=== PATIENT | female | born 1965 | race African-American/Black ===

== ENCOUNTER 2024-01-11 06:21 | Day surgery (SDC) | payer MEDICARE, SELFPAY ==
[2023-11-22 11:24] VITALS: BMI 24.3
[2023-12-26 12:12] VITALS: BMI 24.3
--- NOTE | 2024-01-10 11:18 | P.PNAN_ITS ---
Anes - Initial Pre Proc Eval Procedure: Operation Date: 01/11/24 08:00 Proposed Procedures p Screening Colonoscopy - Osmin Lopez MD Date/Time: 01/10/24 11:18 Surgeon: Osmin Lopez MD Pre Op Diagnosis: Neoplasm Screening Patient Data Age: 58 Gender: F Height: 1.68 m Weight: 68.5 kg Allergies Allergy/AdvReac Type Severity Reaction Status Date / Time No Known Allergies Allergy Verified 01/11/24 06:54 Home Medications Medication Instructions Recorded Confirmed Type meloxicam 7.5 mg tablet 7.5 mg PO DAILY PRN pain #90 tabs 03/23/23 01/11/24 Rx metformin 500 mg tablet 500 mg PO BID #180 tabs 11/21/23 01/11/24 Rx alprazolam 1 mg tablet 1 mg PO DAILY PRN anxiety #30 tabs 12/22/23 01/11/24 Rx Patient hx anesthesia problems: none Family hx anesthesia problems: none Results Review: All pre-operative results and documents have been reviewed as part of the pre- operative evaluation. REPLACED BY [facility] Past Medical History Medical History Anxiety Arthritis Diabetes Family History Family History Mother Diabetes mellitus Hypertension Sibling Diabetes mellitus Depression Social History Social History Smoking packs per day: 1 Smoking cigarettes per day: 20.0 Years smoked: 40 Smoking pack-years: 40.00 Smoking status: Current every day smoker Tobacco type: cigarettes Alcohol intake: current Substance use: unknown Lack of Transportation: No Lack of Food: Never True Current Housing: I Have Housing Concerned About Future Housing: No Difficulty Paying Gas/Electric Bills: YES Difficulty Paying for Meds: No Currently Unemployed: No Education: High School Diploma/GED Difficulty w/ Childcare or Family Care: No Living arrangements: with family Spiritual care concerns: No Anes - Eval Final PreProcedure Day of Procedure 01/10/24 11:18 Patient weight: normal Heart: regular rate and rhythm Lungs: clear to auscultation and normal air movement Airway: Mallampati scale class II Neurological: alert and oriented Last oral intake: >/= 8 hours ASA classification: III Emergent: no Anesthetic plan: proceed Anesthesia type and monitoring: general GIVS and standard monitoring Results Review: All pre-operative results and documents have been reviewed as part of the pre- operative evaluation. Informed Consent: The patient's anesthetic plan and its attendant risks and benefits were discussed with the patient/family/POA. Questions were solicited and answers provided to the satisfaction of the patient/family/POA.
[2024-01-11 06:55] VITALS: BP 124/83; PULSE 98; RESP 20; TEMP 36.4; O2SAT 97
--- NOTE | 2024-01-11 07:10 | P.HP_ITS ---
History of Present Illness History of Present Illness Consent: Risks, benefits, and alternatives have been discussed and questions answered. Patient agrees to proceed with procedure. Chief complaint: Neoplasm Screening Narrative: Sil Hall is a 58 year old female presents for screening colonoscopy. Her current weight appetite and bowel movements are normal. She denies abdominal pain. Has had no bleeding. Family history is noncontributory. Review of Systems Review of Systems: Review of systems is noncontributory. [facility]LY [facility] Past Medical History Medical History Anxiety Arthritis Diabetes Family History Family History Mother Diabetes mellitus Hypertension Sibling Diabetes mellitus Depression Social History Social History Smoking packs per day: 1 Smoking cigarettes per day: 20.0 Years smoked: 40 Smoking pack-years: 40.00 Smoking status: Current every day smoker Tobacco type: cigarettes Alcohol intake: current Substance use: unknown Lack of Transportation: No Lack of Food: Never True Current Housing: I Have Housing Concerned About Future Housing: No Difficulty Paying Gas/Electric Bills: YES Difficulty Paying for Meds: No Currently Unemployed: No Education: High School Diploma/GED Difficulty w/ Childcare or Family Care: No Living arrangements: with family Spiritual care concerns: No Meds Home Medications and Allergies Home Medications Medication Instructions Recorded Confirmed Type meloxicam 7.5 mg tablet 7.5 mg PO DAILY PRN pain #90 tabs 03/23/23 01/11/24 Rx metformin 500 mg tablet 500 mg PO BID #180 tabs 11/21/23 01/11/24 Rx alprazolam 1 mg tablet 1 mg PO DAILY PRN anxiety #30 tabs 12/22/23 01/11/24 Rx Allergies Allergy/AdvReac Type Severity Reaction Status Date / Time No Known Allergies Allergy Verified 01/11/24 06:54 Vital Signs Vital Signs - 24 hr 01/11/24 06:55 Temperature 97.5 F L Pulse Rate 98 Respiratory Rate 20 Blood Pressure 124/83 Pulse Oximetry 97 Oxygen Delivery Room Air Exam Narrative: Physical exam reveals patient to be alert. Vital signs stable. HEENT exam is unremarkable. Patient is anicteric. Lungs are clear to auscultation and percussion is without murmur or extra sounds. Abdomen bowel sounds are present soft nontender with no organomegaly. Digital external rectal exam is normal. Assessment and Plan Assessment and plan (1) Encounter for screening colonoscopy: Code(s): Z12.11 - Encounter for screening for malignant neoplasm of colon Status: Acute Assessment and Plan: She presents today for screening colonoscopy. She appears to be at average risk for colon polyps.
[2024-01-11] MEDS: LACTATED RINGERS 1,000 ML 150 ML IV CONT (07:22)
[2024-01-11 07:58] LABS: Glucose Point of Care 173 mg/dl (65-105)
[2024-01-11 08:15] VITALS: BP 107/80; PULSE 89; RESP 20; O2SAT 97
[2024-01-11 08:25] VITALS: BP 128/74; PULSE 83; RESP 20; O2SAT 100
[2024-01-11 08:35] VITALS: BP 112/78; PULSE 82; RESP 20; O2SAT 100
--- NOTE | 2024-01-11 10:11 | WPDANESPN ---
Anes - Prog Note Post-Op Date/Time: 01/11/24 10:11 Cardiovascular status: normal Respiratory status: normal Airway patency: baseline Mental status: baseline Post-Op hydration status: normal Vital Signs: Last Vital Signs Temp 36.4 C L 01/11/24 06:55 Pulse 82 01/11/24 08:35 Resp 20 01/11/24 08:35 BP 112/78 01/11/24 08:35 Pulse Ox 100 01/11/24 08:35 O2 Del Method Room Air 01/11/24 08:35 Pain Score (VAS): 0 I/O: Intake & Output 01/10/24 01/11/24 01/11/24 23:59 07:59 15:59 Intake Total 550 Balance 550 01/11/24 07:55 POC Capillary Glucose 173 H Post-procedural complaints: none Patient Feedback: Patient satisfied with anesthetic care. Other Findings: Patient vital signs back to baseline. Patient denies nausea and vomiting. Patient's pain under control. Patient OK for discharge.
== END 2024-01-11 08:38 | disposition home or self-care (01) ==
PROVIDERS: PCP Physician Assistant; Visit Provider Internal Medicine Gastroenterology
PROC: 0DJD8ZZ Inspection of Lower Intestinal Tract, Via Natural or Artificial Opening Endoscopic (ICD-10-PCS; CPT 45378; principal; 2024-01-11 08:00)
DX: Z12.11 Encounter for screening for malignant neoplasm of colon (principal); K64.8 Other hemorrhoids
CPT/HCPCS: 45378

== ENCOUNTER 2024-01-30 15:38 | Outpatient (CLI) | payer MEDICARE, SELFPAY ==
--- NOTE | ~2024-01-30 | XR_ITS ---
EXAM: XR hand LT min 3V DATE: 01/30/2024 15:56 HISTORY: M18.12 - Unilateral primary osteoarthritis of first carpo... . COMPARISON: None available. FINDINGS: Normal mineralization. No fracture or dislocation. No lytic or blastic lesion. Scattered a rthritic changes typical of osteoarthritis involving the interphalangeal joints of the fingers and th umbs, triscaphe joint, radiocarpal joint, with the most progressive change at the trapeziometacarpal joint. Absent ulnar styloid. No periosteal change. Soft tissues within normal limits. IMPRESSION: Polyarticular osteoarthritis of the left hand, moderate at the trapezium metacarpal joint . Absent ulnar styloid, may be secondary to remote fracture or old erosion. Reviewed, dictated and finalized at location K. IMPRESSION: Polyarticular osteoarthritis of the left hand, moderate at the trap ezium metacarpal joint. Absent ulnar styloid, may be secondary to remote fractu re or old erosion.
== END 2024-01-30 15:39 | disposition home or self-care (01) ==
LOC: ANHIMG 15:42
PROVIDERS: PCP Physician Assistant; Visit Provider Plastic Surgery
DX: M18.12 Unilateral primary osteoarthritis of first carpometacarpal joint, left hand (principal); M19.042 Primary osteoarthritis, left hand
CPT/HCPCS: 73130

== ENCOUNTER 2025-02-05 11:01 | Outpatient (CLI) | payer MEDICARE, MEDICAID, SELFPAY ==
--- NOTE | 2025-02-05 11:26 | ECG_ITS ---
Test Date: 2025-02-05 11:32:03 Measurements Intervals [place] Rate: 86 P: 44 NV: 113 QRS: 26 QRSD: 78 T: 24 QT: 361 QTc: 434 Interpretive Statements SINUS RHYTHM WITH SHORT NV INTERVAL MINIMAL VOLTAGE CRITERIA FOR LVH, CONSIDER NORMAL VARIANT [MEETS CRITERIA IN ONE OF: R(aVL), S(V1), R(V5), R(V5/V6)+S(V1)] ABNORMAL ECG Electronically Signed On 02-05-2025 12:55:45 CDT by Bruno Brooks M.D.
[2025-02-05 12:18] LABS: Anion Gap 11 mmol/L (4-12); Blood Urea Nitrogen 17 mg/dL (7-17); Calcium 10.1 mg/dL (8.4-10.2); Carbon Dioxide 25 mmol/L (22-30); Chloride 102 mmol/L (98-107); Estimated Glomerular Filt Rate > 60; Glucose 277 mg/dL (65-110); Potassium 4.3 mmol/L (3.4-5.0); Sodium 138 mmol/L (137-145)
== END 2025-02-05 11:02 | disposition home or self-care (01) ==
LOC: ANHLAB 11:03
PROVIDERS: PCP Internal Medicine; Visit Provider Anesthesiology
DX: E11.9 Type 2 diabetes mellitus without complications (principal); Z01.818 Encounter for other preprocedural examination
CPT/HCPCS: 36415; 80048; 93005

== ENCOUNTER 2025-02-06 05:53 | Day surgery (SDC) | payer MEDICARE, MEDICAID, SELFPAY ==
--- NOTE | 2025-02-05 14:04 | SUR.PREOP ---
Pt's pre-op EKG and BMP results reviewed with Dr. Martel for scheduled surgery 02/06/25 at [facility]. Pt's BG 277. Reviewed pt's health history and medications with Dr. Psiano. He states understanding and okay for pt to come to [facility] as scheduled for surgery.
[2025-02-06] VITALS (9 sets, daily range): BP systolic 108–129; BP diastolic 73–92; PULSE 78–98; RESP 12–18; TEMP 36.1–36.4; O2SAT 92–100; BMI 25.7
--- NOTE | ~2025-02-06 | XR_ITS ---
INTRAOPERATIVE FLUOROSCOPY: CLINICAL HISTORY: 59 years old Female; LEFT BASAL JT ARTHROPLASTY, [facility] THUMB PROCEDURE COMMENTS: Limited intraoperative fluoroscopy of the left hand was performed. CUMULATIVE DOSE: 0.13 mGy FLUOROSCOPY TIME: 21 seconds FINDINGS/IMPRESSION: Please refer to operative note for further details. Reviewed, dictated and finalized at location A.
--- OUTSIDE RECORDS SUMMARY | 2025-02-06 06:32 | XMS_ITS | Encounter Summary ---
Author Organization [facility] Address [address] 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
--- OUTSIDE RECORDS SUMMARY | 2025-02-06 06:32 | XMS_ITS | Clinical Summary ---
Author Organization [facility] Address [address] [place] [address] Care Team Providers Care Windows Systems Admin Name Role Phone Justin Salazar Primary Care Provider [phone] Allergies No known active allergies Medications ALPRAZolam (XANAX) 1 mg tablet Take 1 tablet (1 mg total) by mouth 8 Active aspirin 81 mg enteric coated tablet Take 1 tablet (81 mg total) by mouth daily 1 Active metFORMIN (GLUCOPHAGE) 500 mg tablet Take 1 tablet (500 mg total) by mouth 1 Active QUEtiapine (SEROquel) 25 mg tablet 1 Active meloxicam (MOBIC) 7.5 mg tabletIndicatio ns:Osteoarthrit is Take 1 tablet (7.5 mg total) by mouth daily 30 tablet 3 Active Additional Information Patient not taking.Reported on 05/16/2023 blood-glucose meter misc Diagnosis: Diabetes type 2 Blood testing frequency: once a day E11.9 3 Active blood glucose diagnostic (Miguel Blood Glucose Test Strip) strip Use to check blood glucose levels once daily as directed. E11. 3 Active LANCETS MISC Use to check blood glucose levels once daily as directed. E11. 3 Active alcohol swabs pads, medicated Use to check blood glucose levels once daily as directed. E11. 3 Active escitalopram (LEXAPRO) 10 mg tablet Take 1 tablet (10 mg total) by mouth daily 3 Active estrogens, conjugated, (Premarin) vaginal cream Once daily for 21 days, then off for 7 days. 2 Active triamcinolone (KENALOG) 0.1 % cream Application Site: apply twice a day for 10-14 days to affected areas. (Description and Location) 2 Active cyclobenzaprine (FLEXERIL) 5 mg tablet Take 1-2 tablets (5-10 mg total) by mouth 3 (three) times a day as needed for muscle spasms 30 tablet 1 3 Active HYDROcodone-daniel taminophen (NORCO) 5-325 mg per tablet Take 1 tablet by mouth every 8 (eight) hours as needed for pain 4 Active Active Problems Problem Noted Date Diagnosed Date Arm paresthesia, left 10/04/2022 04/19/2023 Rash 06/28/2022 04/19/2023 Anxiety 02/14/2022 04/19/2023 Noncompliance 02/14/2022 04/19/2023 Impaired mobility and ADLs 07/28/202104/19 Low TSH level 07/28/2021 04/19/2023 Vitamin D deficiency 07/28/2021 04/19/2023 Cocaine use 06/10/2021 04/19/2023 Hyperglycemia 06/10/2021 04/19/2023 Left wrist pain 06/10/2021 04/19/2023 Tachycardia 06/10/2021 04/19/2023 Chronic pain of right knee 06/12/2019 Long-term current use of opiate analgesic 2018 Rotator cuff tendinitis, left 06/11/2019 Biceps tendinitis, left 06/11/2019 Carpal tunnel syndrome of right wrist 08/23/2018 Overview (08/23/2018): Added automatically from request for surgery [id number] Type 2 diabetes mellitus treated without insulin 11/20/2017 Resolved Problems Problem Noted Date Diagnosed Date Resolved Date Dermatitis of foot 10/11/2017 8 Mass of left foot 10/11/2017 07/27/2018 Pain of left foot 10/11/2017 07/27/2018 Dermatomycosis 06/23/2017 07/27/2018 Arthritis 09/19/2016 07/27/2018 Chronic bilateral low back pain with sciatica 09/19/20 16 07/27/2018 Generalized anxiety disorder 09/19/2016 07/27/2018 Lipoma of right shoulder 09/19/201605/2018 Non morbid obesity due to excess calories 09/19/2016 07/27/2018 Tobacco abuse 09/19/2016 07/27/2018 Hyperlipidemia 11/20/2015 07/27/2018 Immunizations Immunization Administration Dates Next Due Tdap 03/28/2018 Surgical History Surgery Date Site/Laterality Comments SECTION, CLASSIC Medical History Medical History Date Comments Hyperlipidemia Chronic pain of right knee DM2 (diabetes mellitus, type 2) (HCC) 11/20/2017 Depression ADHD (attention deficit hyperactivity disorder) Anxiety Arthritis Family History Medical History Relation Name Comments Diabetes Brother Arthritis Mother Cancer Mother Hypertension Mother Relation Name Status Comments Brother Mother Social History Tobacco Use Types Packs/Day Years Used Date Smoking Tobacco: Every Day Cigarettes Smokeless Tobacco: Never Alcohol Use Standard Drinks/Week Comments Yes 3 (1 standard drink = 0.6 oz pur e alcohol) Personal Safety Answer Date Recorded Have you ever been in or are you currently in a harmful physical or emotional relationship or is someone making you feel afraid or unsafe? 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 Gender Identity Not on file Sexual Orientation Not on file Obstetrics History Para Term AB IAB SAB Ectopic Multiple Livin g Live Births 4 4 Date Outcome GA Total Labor Labor/2nd/3rd Weight Sex Type Anes PTL Ave A1 A5 Name Clin Para Para Para Para Last Filed Vital Signs Vital Sign Reading Time Taken Comments Blood Pressure 127/85 09/18/2024 9:20 AM CDT Pulse 86 09/18/2024 9:20 AM CDT Temperature 36.2 C (97.2 F) 03/19/2023 10:33 AM CDT Respiratory Rate 16 03/19/2023 10:00 AM CDT Oxygen Saturation 96% 03/19/2023 10:25 AM CDT Inhaled Oxygen Concentration - - Weight 71.7 kg (158 lb) 09/18/2024 9:20 AM CDT Height 162.6 cm (5' 4 ) 09/18/2024 9:20 AM CDT Body Mass Index 27.12 09/18/2024 9:20 AM CDT Plan of Treatment Health Maintenance Due Date Last Done Comments Cervical Cancer Screening 1963 Colon Cancer Screening-Colonoscopy 1963 Depression Screening 1963 Hemoglobin A1C 1963 Hepatitis C Screening 1963 Dilated Eye Exam 1963 Foot Exam 1963 Hepatitis B Screening 1981 Regular Well Visit/Exam 18-64 1981 Pneumococcal vaccine <65 (1 of 2 - PCV) 1982 Zoster Vaccine (1 of 2) 2013 Lipid Panel 07/27/2022 07/27/2021, 07/08/2019 eGFR 07/30/2022 07/30/2021 Breast Cancer Screening-Mammogram 03/16/2023 03/16/2022, 03/16/2022, 08/05/2019, Additional history exists Influenza Vaccine (#1) 2024 Albumin Creatinine Ratio, Urine 11/07/2025 DTaP/Tdap/Td Vaccine (2 - Td or Tdap) 03/28/2028 03/28/2018 Procedures Procedure Name Priority Date/Time Associated Diagnosis Comments ALBUMIN CREATININE RATIO, URINE Routine 11/07/2024 2:15 PM FINISHING AREA SUPERVISOR EGFR STAT 07/30/2021 10:40 AM CDT from Last 3 Months or Most Recently Relevant to Health Maintenance Results * Albumin Creatinine Ratio, Urine (11/07/2024 2:15 PM FINISHING AREA SUPERVISOR) Albumin Ur <12.0 mg/L Comment: Interpretive Data No reference range established. Current interpretive data was last revised 2019. Testing performed by: [facility], [address] [place] [address], [place]., [address] Creatinine Ur 35.7 mg/dL [facility] ([place]) Comment: Interpretive Data No reference range established. Current interpretive data was last revised 2019. Testing performed by: [address] [address] Albumin Creatinine Ratio, Ur See Comment 1 - 29 [facility] ([place]) Comment: Unable to calculate Testing performed by: [facility] [id number], [place]., [address] Urine 11/07/2024 2:15 PM FINISHING AREA SUPERVISOR 11/07/2024 5:42 PM FINISHING AREA SUPERVISOR us Edil Lorenzo MD LAB URINE ORDERABLES Fi nal Result [facility] ([place]) 1 [facility] [place] [address] * eGFR (07/30/2021 10:40 AM CDT) eGFR 110 mL/min/1.7 3 m2 [facility] ([place]) Comment: Interpretive Data Reference Interval Normal >/= 90 mL/min/1.73m2 Mildly decreased* 60 - 89 mL/min/1.73m2 Mildly to moderately decreased 45 - 59 mL/min/1.73m2 Moderately to severely decreased 30 - 44 mL/min/1.73m2 Severely decreased 15 - 29 mL/min/1.73m2 Kidney Failure < 15 mL/min/1.73m2 *Relative to young adult level Estimated glomerular filtration rate is determined by the CKD-EPI equation recommended by the National Kidney Foundation (KDIGO 2012 Clinical Practice Guideline for the Evaluation and Management of Chronic Kidney Disease. Kidney Intnl Suppl Nov 2012;3:1). The CKD-EPI equation should not be used for patients with unstable renal function and has not been validated in children and those over 70. Current interpretive data was last reviewed 2020 Blood 07/30/2021 10:4 0 AM CDT 07/30/2021 10:48 AM CDT us Conrad Lewis MD LAB BLOOD ORDERABLES F inal Result [facility] ([place]) 1 [facility] [place] [address] from Last 3 Months or Most Recently Relevant to Health Maintenance Insurance [employer] [facility] MEDICARE HMO [employer] [facility] MEDICARE HMO IDPA [facility] MEDICARE HMO MEDICARE SOLUTIONS Care Teams Windows Systems Admin Relationship Specialty Start Date End Date Justin Salazar DO [address] [facility] [address] [place] [address] PCP - General Internal Medicine 11/14/24
--- OUTSIDE RECORDS SUMMARY | 2025-02-06 06:32 | XMS_ITS | Referral Summary ---
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 Current interpretive data was last revised 2019. Testing performed by: [address] [address] Creatinine Ur 35.7 mg/dL [facility] ([place]) Comment: Interpretive Data No reference range established. Current interpretive data was last revised 2019. Testing performed by: [address] [address] Albumin Creatinine Ratio, Ur See Comment 1 - 29 [facility] ([place]) Comment: Unable to calculate Testing performed by: [address] [address] Urine 11/07/2024 2:15 PM OIL PROCESSING TECHNICIAN 11/07/2024 5:42 PM OIL PROCESSING TECHNICIAN us Edil Lorenzo MD LAB URINE ORDERABLES nal Result [facility] ([place]) 1 [facility] [place] [address] * eGFR (07/30/2021 10:40 AM CDT) eGFR 110 mL/min/1.7 3 m2 [facility] ([place]) Comment: Interpretive Data Reference Interval Normal >/= [...] 0 AM CDT 07/30/2021 10:48 AM CDT Conrad Lewis MD LAB BLOOD ORDERABLES F inal Result [facility] ([place]) 1 [facility] [employer] [place] [address] from Last 3 Months or Most Recently Relevant to Health Maintenance Insurance [employer] [facility] MEDICARE HMO [employer] [facility] MEDICARE HMO IDPA [employer] MEDICARE HMO MEDICARE SOLUTIONS Care Teams Engagement Engineer Relationship Specialty Start Date End Date Justin Salazar DO [address] [facility] [address] [place], [place] [id number] PCP - General Internal Medicine 11/14/24
--- OUTSIDE RECORDS SUMMARY | 2025-02-06 06:32 | XMS_ITS | Clinical Summary ---
Author Organization [facility] Address [address] 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
--- OUTSIDE RECORDS SUMMARY | 2025-02-06 06:32 | XMS_ITS | Patient Health Record ---
Author Organization [facility] [employer] Address [address] [facility] [address] [place] [address] Care Team Providers Care Controller Operations And Hr Manager Name Role Phone Son Santana Unavailable [phone] Reason For Referral No Information Medications Medication SIG (Take, Route, Frequency, Duration) Notes Start Date End Date Status HYDROcodone-Acetaminophen 10-325 MG TAKE 1 TABLET BY MOUTH THREE TIMES DAILY NEEDED Oral for 30 Days Active metFORMIN HCl 500 MG TAKE 1 TABLET BY MOUTH TWICE DAILY Oral for 90 Days Active ALPRAZolam 1 MG 1 tablet Orally once a day Active Cyclobenzaprine HCl 5 MG TAKE 1 TABLET B Y MOUTH AT BEDTIME FOR 3 DAYS Oral for 3 Days Not-Taking ALPRAZolam 1 MG TAKE 1 TABLET BY MOUTH DAILY NEEDED FOR ANXIETY Oral for 30 Days Not-Taking Cyclobenzaprine HCl 5 MG TAKE 1 TABLET B Y MOUTH AT BEDTIME FOR 3 DAYS Oral for 3 Days Active Social History Tobacco Use: Social History Observation Description Date Details (start date - stop date) Current Smoker NA - NA Sex Assigned At : Social History Observation Description Sex Assigned At Female Tobacco Control (Standard) Question Answer Notes Tobacco use: Current every day smoker AUDIT-C (Standard) Question Answer Notes Did you have a drink contain ing alcohol in the past year? Yes How often did you have six o r more drinks on one occasion in the past year? 2 to 4 times a month (2 points) How many drinks did you have on a typical day when you were drinking in the past year? 1 or 2 drinks (0 point) How often did you have a dri nk containing alcohol in the past year? Never (0 point) Points 2 Interpretation Negative Problems Problem Type SNOMED Code ICD Code Onset Dates Problem Status W/U Status Risk Notes Problem 32329160 [place] (generalized anxiety disorder) (F41.1) Active confirmed Problem 36824892 Cannabis abuse (F12.10) Active confirmed Problem Vitamin D deficiency (25942661) Vitamin D deficiency (E55.9) 3 Active confirmed Problem Long-term current use of drug therapy (304233884) Other mcc (current) drug therapy (V58.69) Active confirmed Problem Type II diabetes mellitus without complication (130628950) Type 2 diabetes mellitus treated without insulin ([facility]) (E11.9) 3 Active confirmed Problem Nondependent cocaine abuse (063609503) Cocaine use (F14.90) 3 Active confirmed Problem Pain in wrist (52161623) Left wrist pain (M25.532) 3 Active confirmed Problem Chronic pain of right knee (M25.561) 9 Active confirmed Problem Blood chemistry abnormal (259149568) Low TSH level (R79.89) 3 Active confirmed Vital Signs Heart Rate 92 /min 05/15/2024 Blood pressure diastolic 92 mm Hg 05/15/2024 Weight-kg 72.85 kg 05/15/2024 Blood pressure systolic 116 mm Hg 05/15/2024 Weight 160.6 lbs 05/15/2024 Encounters Encounter Location Date Provider Diagnosis [facility] [email or web address] [facility] [address] [address] 05/15/2024 Son Santana Other mcc (current) drug therapy V58.69 ; [place]ENS (generalized anxiety disorder) F41.1 and Cannabis abuse F12.10 [facility] [employer] [place] [id number] [facility] [address] [facility] [address] [place] [address] 09/11/2024 Son Santana Assessments Encounter Date Diagnosis (ICD Code) Assessment Notes Treatment Notes Treatment Clinical Notes Section Notes 05/15/2024 [place] (generalized anxiety disorder) (ICD-10 - F41.1) Anxiety Disorder - Assessment: Patient is currently prescribed Alprazolam 30mg by primary care physician for anxiety disorder. - Plan: - Continue current Alprazolam 1 mg as prescribed until further evaluation. - Obtain a letter from the previous treating physician at [facility] regarding the long-term use of Alprazolam 3 mg daily - Patient advised to remain marijuana-free for at least three months. - Consider alternative non-addictive treatment options, such as Buspirone, for anxiety management. She was adviced not to use cannabis, she does not know the name of physician giving her xanax 3 mg a day for years, [place] [facility] [place] Depression - Assessment: Patient experiences mood fluctuations, sleep disturbances, and feelings of guilt or hopelessness. - Plan: - Monitor mood symptoms. - Encourage the patient to report any thoughts of self-harm or suicide. - Consider referral to outpatient psychiatric treatment if symptoms worsen. Tobacco Use - Assessment: Patient has a history of tobacco use. - Plan: - Encourage smoking cessation and provide resources for quitting. - Monitor for potential health complications related to long-term smoking. Alcohol and Marijuana Use - Assessment: Patient has a history of alcohol and marijuana use. - Plan: - Advise the patient to limit alcohol consumption and maintain abstinence from marijuana. - Monitor for potential interactions with current medications. Type 2 Diabetes - Assessment: Patient has Type 2 diabetes under the care of Dr. Clark. - Plan: - Continue management under the care of Dr. Clark. - Encourage regular follow-up appointments every three to six months. Left Wrist Pain and Previous Left Knee Issues - Assessment: Patient experiences left wrist pain and has a history of left knee issues. Currently taking Naproxen and Cyclobenzaprine as prescribed. - Plan: - Continue current Naproxen and Cyclobenzaprine as prescribed. - Encourage the patient to report any worsening of pain or new joint issues. - Consider referral to physical therapy if needed. 05/15/2024 Other mcc (current) drug therapy (ICD9-CM - V58.69) Anxiety Disorder - Assessment: Patient is currently prescribed Alprazolam 30mg by primary care physician for anxiety disorder. - Plan: - Continue current Alprazolam 1 mg as prescribed until further evaluation. - Obtain a letter from the previous treating physician at [facility] regarding the long-term use of Alprazolam 3 mg daily - Patient advised to remain marijuana-free for at least three months. - Consider alternative non-addictive treatment options, such as Buspirone, for anxiety management. She was adviced not to use cannabis, she does not know the name of physician giving her xanax 3 mg a day for years, she [place] [facility] [place] Depression - Assessment: Patient experiences mood fluctuations, sleep disturbances, and feelings of guilt or hopelessness. - Plan: - Monitor mood symptoms. - Encourage the patient to report any thoughts of self-harm or suicide. - Consider referral to outpatient psychiatric treatment if symptoms worsen. Tobacco Use - Assessment: Patient has a history of tobacco use. - Plan: - Encourage smoking cessation and provide resources for quitting. - Monitor for potential health complications related to long-term smoking. Alcohol and Marijuana Use - Assessment: Patient has a history of alcohol and marijuana use. - Plan: - Advise the patient to limit alcohol consumption and maintain abstinence from marijuana. - Monitor for potential interactions with current medications. Type 2 Diabetes - Assessment: Patient has Type 2 diabetes under the care of Dr. Clark. - Plan: - Continue management under the care of Dr. Clark. - Encourage regular follow-up appointments every three to six months. Left Wrist Pain and Previous Left Knee Issues - Assessment: Patient experiences left wrist pain and has a history of left knee issues. Currently taking Naproxen and Cyclobenzaprine as prescribed. - Plan: - Continue current Naproxen and Cyclobenzaprine as prescribed. - Encourage the patient to report any worsening of pain or new joint issues. - Consider referral to physical therapy if needed. 05/15/2024 Cannabis abuse (ICD-10 - F12.10) Anxiety Disorder - Assessment: Patient is currently prescribed Alprazolam 30mg by primary care physician for anxiety disorder. - Plan: - Continue current Alprazolam 1 mg as prescribed until further evaluation. - Obtain a letter from the previous treating physician at [facility] regarding the long-term use of Alprazolam 3 mg daily - Patient advised to remain marijuana-free for at least three months. - Consider alternative non-addictive treatment options, such as Buspirone, for anxiety management. She was adviced not to use cannabis, she does not know the name of physician giving her xanax 3 mg a day for years, she [place] [facility] [place] - Assessment: Patient experiences mood fluctuations, sleep disturbances, and feelings of guilt or hopelessness. - Plan: - Monitor mood symptoms. - Encourage the patient to report any thoughts of self-harm or suicide. - Consider referral to outpatient psychiatric treatment if symptoms worsen. Tobacco Use - Assessment: Patient has a history of tobacco use. - Plan: - Encourage smoking cessation and provide resources for quitting. - Monitor for potential health complications related to long-term smoking. Alcohol and Marijuana Use - Assessment: Patient has a history of alcohol and marijuana use. - Plan: - Advise the patient to limit alcohol consumption and maintain abstinence from marijuana. - Monitor for potential interactions with current medications. Type 2 Diabetes - Assessment: Patient has Type 2 diabetes under the care of Dr. Clark. - Plan: - Continue management under the care of Dr. Clark. - Encourage regular follow-up appointments every three to six months. Left Wrist Pain and Previous Left Knee Issues - Assessment: Patient experiences left wrist pain and has a history of left knee issues. Currently taking Naproxen and Cyclobenzaprine as prescribed. - Plan: - Continue current Naproxen and Cyclobenzaprine as prescribed. - Encourage the patient to report any worsening of pain or new joint issues. - Consider referral to physical therapy if needed. 05/15/2024 Other Learning About Depression Screening material was printed Learning About Depression Screening material was printed Anxiety Disorder - Assessment: Patient is currently prescribed Alprazolam 30mg by primary care physician for anxiety disorder. - Plan: - Continue current Alprazolam 1 mg as prescribed until further evaluation. - Obtain a letter from the previous treating physician at [facility] regarding the long-term use of Alprazolam 3 mg daily - Patient advised to remain marijuana-free for at least three months. - Consider alternative non-addictive treatment options, such as Buspirone, for anxiety management. She was adviced not to use cannabis, she does not know the name of physician giving her xanax 3 mg a day for years, she [place] [facility] [place] - Assessment: Patient experiences mood fluctuations, sleep disturbances, and feelings of guilt or hopelessness. - Plan: - Monitor mood symptoms. - Encourage the patient to report any thoughts of self-harm or suicide. - Consider referral to outpatient psychiatric treatment if symptoms worsen. Tobacco Use - Assessment: Patient has a history of tobacco use. - Plan: - Encourage smoking cessation and provide resources for quitting. - Monitor for potential health complications related to long-term smoking. Alcohol and Marijuana Use - Assessment: Patient has a history of alcohol and marijuana use. - Plan: - Advise the patient to limit alcohol consumption and maintain abstinence from marijuana. - Monitor for potential interactions with current medications. Type 2 Diabetes - Assessment: Patient has Type 2 diabetes under the care of Dr. Clark. - Plan: - Continue management under the care of Dr. Clark. - Encourage regular follow-up appointments every three to six months. Left Wrist Pain and Previous Left Knee Issues - Assessment: Patient experiences left wrist pain and has a history of left knee issues. Currently taking Naproxen and Cyclobenzaprine as prescribed. - Plan: - Continue current Naproxen and Cyclobenzaprine as prescribed. - Encourage the patient to report any worsening of pain or new joint issues. - Consider referral to physical therapy if needed. Plan Of Treatment Pending Test Test Name Order Date UDT 05/15/2024 Insurance Providers Payer Name Payer Address Payer Phone Subscriber Number Group Number Insured Name Patient Relationship to Insured Coverage Start Date Coverage End Date [facility] [address] [place] [phone] [id number] [place] Self - patient is the insured
--- OUTSIDE RECORDS SUMMARY | 2025-02-06 06:32 | XMS_ITS | Encounter Summary ---
Author Organization [facility] Address [address] [facility] [place] [address] Phone Care Team Providers Care Bleach Boiler Puller Name Role Phone Nathanael Cannon MD Unavailable [phone] Shubham Chamberlain MD Primary Care Provider [phone] Reason for Referral * PT/OT/ST (Routine) - Closed Specialty Diagnoses / Procedures Referred By Contdioni t Referred To Contact Occupational Therapy Diagnoses Unilateral primary osteoarthritis of first carpometacarpal joint, left hand Justin Salazar DO [address] [facility] [place] [address] Phone: tel: fax: [facility] at [address] [address] Phone: tel: fax: Referral ID Status Reason Start Date Expiration Date Visits Re quested Visits Authorized [id number] Closed 07/01/2024 50 60 Scheduling Instructions Encounter Details Date Type Department Care Team (Late st Contact Info) Description 07/01/2024 Transcribe Orders [facility] [address] [place] [address] Allen Salazare L, DO [address] [place] [address] Unilateral primary osteoarthritis of first carpometacarpal joint, left hand (Primary Dx) Social History Tobacco Use Types Packs/Day Years Used Date Smoking Tobacco: Every Day Cigarettes 0.5 45.7 Started: 06/11/1979 Smokeless Tobacco: Never Alcohol Use Standard Drinks/Week Comments Yes 2 (1 standard drink = 0.6 oz pur e alcohol) occassional PHQ-2 Answer Date Recorded Total Score - Questions 1-9 0 08/0 07/2022 Sexually Active Control Partners Comments Yes Male Comments No Sex and Gender Information Value Date Recorded Sex Assigned at Female 07/04/2023 10:53 AM CDT Legal Sex Female 11:51 PM CDT Gender Identity Female 07/04/2023 10:53 AM CDT Sexual Orientation Not on file documented as of this encounter Plan of Treatment Scheduled Referrals Name Type Priority Associated Diagnoses Orde r Schedule OCCUPATIONAL THERAPY REFERRAL Outpatient Referral Routine Unilateral primary osteoarthritis of first carpometacarpal joint, left hand Expected: 07/01/2024, Expires: 07/01/2025 documented as of this encounter Visit Diagnoses Diagnosis Unilateral primary osteoarthritis of first carpometacarpal joint, left hand- Primary documented in this encounter Additional Health Concerns Assessment Noted Time PHQ-9 Depression Total Score: 0 06/28/20 22 3:00 PM CDT documented as of this encounter Care Teams Bleach Boiler Puller Relationship Specialty Start Date End Date Shubham Chamberlain MD #[address] [address] PCP - General Family Medicine 06/10/21 Nathanael Cannon MD Consulting Physician Orthopaedic Surgery 06/18/18 documented as of this encounter
--- OUTSIDE RECORDS SUMMARY | 2025-02-06 06:32 | XMS_ITS | Clinical Summary ---
Author Organization [facility] Address [address], [facility] [address] [place] [address] Phone Care Team Providers Care Head Loft Worker Name Role Phone Nathanael Cannon MD Unavailable [phone] Shubham Chamberlain MD Primary Care Provider Allergies No known active allergies Medications triamcinolone (KENALOG) 0.1 % CreamIndication s:Rash Application Site: apply twice a day for 10-14 days to affected areas. (Description and Location) 15 g 2 Active conjugated estrogens (Premarin) 0.625 MG/GM CreamIndication s:Dyspareunia, female Once daily for 21 days, then off for 7 days. 30 g 3 2 Active naproxen (NAPROSYN) 500 MG Tablet Take 1 Tablet by mouth 2 times daily (with meals). 60 Tablet 2 2 Active gabapentin (NEURONTIN) 100 MG Capsule Take 1 Capsule by mouth 3 times daily. 90 Capsule 1 2 Active Blood Glucose Monitoring Suppl DeviceIndicatio ns:Type 2 diabetes mellitus without complication, without long-term current use of insulin (HCC) Diagnosis: Diabetes type 2 Blood testing frequency: once a day E11.9 1 Each 3 Active Glucose Blood StripIndication s:Type 2 diabetes mellitus without complication, without long-term current use of insulin (HCC) Use to check blood glucose levels once daily as directed. E11.9 100 Strip 11 3 Active Lancets MiscIndications :Type 2 diabetes mellitus without complication, without long-term current use of insulin (HCC) Use to check blood glucose levels once daily as directed. E11.9 100 Lancet 11 3 Active Alcohol Swabs (Alcohol Prep) 70 % PadsIndications :Type 2 diabetes mellitus without complication, without long-term current use of insulin (HCC) Use to check blood glucose levels once daily as directed. E11.9 100 Each 11 3 Active escitalopram (LEXAPRO) 10 MG TabletIndicatio ns:Anxiety Take 1 Tablet by mouth daily. 90 Tablet 1 3 Active hydrOXYzine (ATARAX) 25 MG TabletIndicatio ns:Anxiety Take 1 Tablet by mouth every 8 hours as needed for Anxiety. 90 Tablet 2 3 Active metFORMIN (GLUCOPHAGE) 500 MG Tablet Take 1 Tablet by mouth 2 times daily (with meals). 180 Tablet 3 3 Active QUEtiapine (SEROquel) 25 MG Tablet Take 1 Tablet by mouth nightly as needed for Other. 90 Tablet 3 3 Active aspirin EC 81 MG Tablet Delayed Response Take 1 Tablet by mouth daily. 100 Tablet 3 3 Active Active Problems Problem Noted Date Diagnosed Date Arm paresthesia, left 10/04/2022 Rash 06/28/2022 Personal history of tobacco use, presenting hazards to health 06/28/2022 Noncompliance 02/14/2022 Anxiety 02/14/2022 Type 2 diabetes mellitus treated without insulin 07/28/2021 Vitamin D deficiency 07/28/2021 Impaired mobility and ADLs 07/28/2021 Low TSH level 07/28/2021 Cocaine use 06/10/2021 Tachycardia 06/10/2021 Hyperglycemia 06/10/2021 Left wrist pain 06/10/2021 Chronic pain of right knee 06/10/2021 Long-term current use of opiate analgesic 2018 DM2 (diabetes mellitus, type 2) 11/20/2017 Dermatitis of foot 10/11/2017 Dermatomycosis 06/23/2017 Chronic bilateral low back pain with sciatica Generalized anxiety disorder 09/19/2016 Arthritis 09/19/2016 Non morbid obesity due to excess calories 2015 Tobacco abuse 09/19/2016 Hyperlipidemia 11/20/2015 Resolved Problems Problem Noted Date Diagnosed Date Resolved Date S/P excision of lipoma 09/03/201912/02 Mass of left foot 10/11/2017 10/15/2018 Pain of left foot 10/11/2017 10/15/2018 Chronic pain of right knee 09/19/2016 0 01/26/2018 Chronic right shoulder pain 09/19/2016 01/26/2018 Lipoma of right shoulder 09/19/2016 Immunizations Immunization Administration Dates Next Due TDAP Vaccine 03/28/2018 Family History Medical History Relation Name Comments Diabetes Brother 1 x2 Diabetes Brother 2 No Known Problems Daughter Other-comment Father killed Breast Cancer Mother Cancer Mother BREAST Hypertension Mother Kidney Disease Mother No Known Problems Son 1 No Known Problems Son 2 No Known Problems Son 3 Relation Name Status Comments Brother 1 Alive Brother 2 Alive Brother 3 Alive Brother 4 Alive Brother 5 Alive Daughter Alive Father Mother Sister 1 Alive Sister 2 Alive Sister 3 Alive Sister 4 Alive Son 1 Alive Son 2 Alive Son 3 Alive Social History Tobacco Use Types Packs/Day Years Used Date Smoking Tobacco: Every Day Cigarettes 0.5 45.7 Started: 06/11/1979 Smokeless Tobacco: Never Tobacco Cessation:Ready to Q uit: No; Counseling Given: Yes Alcohol Use Standard Drinks/Week Comments Yes 2 [...] AM CDT Sexual Orientation Not on file Last Filed Vital Signs Vital Sign Reading Time Taken Comments Blood Pressure 124/68 02/06/2023 10:43 AM CDT Pulse 94 02/06/2023 10:43 AM CDT Temperature 36.1 C (96.9 F) 02/06/2023 10:43 AM CDT Respiratory Rate 16 02/06/2023 10:43 AM CDT Oxygen Saturation 97% 02/06/2023 10:43 AM CDT Inhaled Oxygen Concentration - - Weight 68.6 kg (151 lb 3.2 oz) 02/06/2023 10:43 AM CDT Height 167.6 cm (5' 6 ) 02/06/2023 10:43 AM CDT Body Mass Index 24.4 02/06/2023 10:43 AM CDT Plan of Treatment Health Maintenance Due Date Last Done Comments Diabetes: Foot Exam 1963 Pneumococcal Immunization (50+ years) (1 of 2 - PCV) 1982 Colonoscopy 2008 Colorectal Cancer Screening 2008 Cologuard 2013 Immunochemical Fecal Occult Blood 2013 Zoster Immunization (1 of 2) 2013 Diabetes: Nephropathy Screening 07/27/2022 07/27/2021, 07/08/2019, 02/21/2018, Additional history exists Diabetes: Hemoglobin A1c 08/17/2022 022, 07/27/2021, 07/08/2019, Additional history exists Mammogram 03/16/2023 03/16/2022, 07/21, 10/11/2016 Diabetes: Eye Exam 05/15/2024 05/15/2023 Influenza Immunization (#1) 2024 SARS-COV-2 Immunization ( season) 2024 Pap Smear 07/28/2025 07/28/2022, 12/14/2016 Cervical Cancer Screening (CCS) 07/28/2027 HPV/Cotest 07/28/2027 07/28/2022 Td Immunization Every 10 Years (Adults With 1 Tdap) 03/28/2028 03/28/2018 Respiratory Syncytial Virus (RSV) Immunization (Adult) (1 - 1-dose 75+ series) 2038 Hepatitis C Virus (HCV) Screening Completed 07/27/2021 Hepatitis B Immunization Aged Out No longer eligible based on patient's age to complete this topic Meningococcal Immunization (ACWY) Aged Out No longer eligible based on patient's age to complete this topic Rotavirus Immunization Aged Out No lo nger eligible based on patient's age to complete this topic Procedures Procedure Name Priority Date/Time Associated Diagnosis Comments HM DILATED EYE EXAM 05/15/2023 1 2:00 AM CDT PATHOLOGY CYTOLOGY PRESS READER Routine 07/28/2022 2:19 PM CDT Encounter for gynecological examination without abnormal finding Screening for malignant neoplasm of cervix HUMAN PAPILLOMA VIRUS (HPV) Routine 07/28/2022 11:01 AM CDT Encounter for screening for human papillomavirus (HPV) ALBERTO SCREENING BILATERAL DIGITAL W CAD W RHEA Routine 03/16/2022 12:08 PM CDT Screening mammogram for breast cancer HEMOGLOBIN A1C W/ ESTIMATED GLUCOSE Routine 02/14/2022 6:23 AM CDT Type 2 diabetes mellitus treated without insulin (HCC) CMP (COMPREHENSIVE METABOLIC PANEL) Routine 07/27/2021 11:42 AM CDT Tachycardia HEPATITIS C ANTIBODY Routine 07/27/2021 11:42 AM CDT Encounter for hepatitis C screening test for low risk patient from Last 3 Months or Most Recently Relevant to Health Maintenance Results * HM DILATED EYE EXAM (05/15/2023 12:00 AM CDT) 05/15/2023 us Provider Scan PROCEDURE/MINOR SURGICAL ORDERAB LES Final Result SCAN * PATHOLOGY CYTOLOGY PRESS READER (07/28/2022 2:19 PM CDT) SPECIMEN ADEQUACY Satisfactory for evaluation. Endocervical/transf ormation zone component is absent. 08/08/2022 9:36 AM CDT [facility] DESCRIPTIVE DIAGNOSIS NEGATIVE FOR INTRAEPITHELIAL LESIONS OR MALIGNANCY. 08/08/2022 9:36 AM CDT [facility] Reflex if ASCUS? Yes 08/08/2022 9:36 AM CDT [facility] Automated Examination This sample was not evaluated by the automated imaging and review system due to technical and/or biologic factor(s). The case was screened, reviewed, and finalized by a energy conservation technician and/or pathologist. 08/08/2022 9:36 AM CDT [facility] Disclaimer The PAP smear is a screening test designed to detect cancerous or precancerous cells of the uterine cervix. It is one of the best means available for detection of cervical cancer but still carries an inherent false-negative rate. The consequences of a false-negative PAP result can be minimized by adhering to current screening guidelines. The following are general guidelines recommended by the ACS, ASCP, ASCCP, and ACOG: PAP testing is recommended every three years for women 21-29, Co-Testing , a PAP test in conjunction with an HPV (Human Papillomavirus) test for women ages 30-65, and no PAP or HPV testing for women under the age of 21 or older than 65 unless clinically indicated. 08/08/2022 9:36 AM CDT [facility] Other CERVIX UTERI STRUCTURE / Unknown Non-Phlebotomy Collection / Unknown 07/28/2022 2:19 PM CDT 07/28/2022 2:20 PM CDT us David Parry MD PATHOLOGY/CYTOLOGY ORDERABLES nal Result [facility] [address] [place] [address], * (ABNORMAL) HUMAN PAPILLOMA VIRUS (HPV) (07/28/2022 11:01 AM CDT) HPV OTHER HIGH RISK TYPES, PCR POSITIVE(A) NEGATIVE 07/29/2022 2:51 PM CDT [facility] Comment: Positive for one or more of the following Other High HPV types: 31, 33, 35, 39, 45, 51, 52, 56, 58, 59, 66, and 68. False-positive results have been reported with molecular assays. If these positive results are discordant with clinical/cytohistologic findings, repeat testing may be considered after an appropriate interval. HPV TYPE 16 POSITIVE(A) NEGATIVE 07/29/2022 2:51 PM CDT [facility] Comment:False-positive resul ts have been reported with molecular assays. If these positive results are discordant with clinical/cytohistologic findings, repeat testing may be considered after an appropriate interval. HPV TYPE 18 NEGATIVE NEGATIVE 07/29/2022 2:51 PM CDT [facility] Comment: A negative high-risk HPV result does not exclude the possibility of future cytologic HSIL or underlying CIN2-3 or cancer. The presence of PCR inhibitors may cause false negative or invalid results. If concentrations of whole blood in the sample exceed 1.5% (dark red or brown coloration) in PreservCyt solution, there is a likelihood of obtaining a false-negative result. HPV ORDER BE USED FOR SCREENING OR DIAGNOSTIC SCREENING 07/29/2022 2:51 PM CDT [facility] Other Non-Phlebotomy Collection / Unknown 07/28/2022 11:01 AM CDT 07/28/2022 11:01 AM CDT Narrative [facility] - 07/29/2022 2:51 PM CDT Performed by Real-Time Polymerase Chain Reaction (PCR) on the Ananya Markus 4800. This assay has been validated for use with post-aliquot samples from the Pixium Vision T5000 processor. us David Parry MD LAB SEND OUTS Final Result [facility] [address] [place] [address], [facility] [address] [place] [address] * ALBERTO SCREENING BILATERAL DIGITAL W CAD W RHEA (03/16/2022 12:08 PM CDT) Anatomical Region Laterality Modality breast Bilateral Mammography 03/16/2022 11:3 5 AM CDT Narrative 03/21/2022 8:20 AM CDT - ALBERTO SCREENING BILATERAL DIGITAL W CAD W RHEA BILATERAL DIGITAL SCREENING MAMMOGRAM 3D/2D WITH CAD WITH MEDIOLATERAL OBLIQUE CRANIOCAUDAL: 03/16/2022 The study was acquired using digital technology and interpreted from soft copy. Current study was also evaluated with ICAD version 7.2. 2D digital mammographic views, as well as 3D digital tomosynthesis were performed in the CC and MLO projections. CLINICAL: Routine screening. Patient has no complaints. No personal history of cancer. No family history of breast cancer. COMPARISONS: Comparison is made to exams dated: 08/05/2019, 10/11/2016, and 07/31/2007 [facility]. BREAST TISSUE:There are scattered fibroglandular densities in both breasts. FINDINGS: No significant masses, calcifications, or other findings are seen in either breast. There has been no significant interval change. IMPRESSION: BI-RAD 1 NEGATIVE There is no mammographic evidence of malignancy. A 1 year screening mammogram is recommended. A letter will be sent to the patient with these results. The patient will be entered into a reminder system with a target due date of 1 year for her next screening exam. Electronically signed by: Baldo ivan/pearl:03/19/2022 17:05:44 Scenario Writer(s): Ayan Vences(Aston)(M), [facility] letter sent: Normal Exam Reading location: [facility] BI-RADS: 1 Negative Procedure Note Baldo Mcneil MD - 03/21/2022 - ALBERTO SCREENING BILATERAL DIGITAL W CAD W RHEA BILATERAL DIGITAL SCREENING MAMMOGRAM 3D/2D WITH CAD WITH MEDIOLATERAL OBLIQUE CRANIOCAUDAL: 03/16/2022 The study was acquired using digital technology and interpreted from soft copy. Current study was also evaluated with ICAD version 7.2. 2D digital mammographic views, as well as 3D digital tomosynthesis were performed in the CC and MLO projections. CLINICAL: Routine screening. Patient has no complaints. No personal history of cancer. No family history of breast cancer. COMPARISONS: Comparison is made to exams dated: 08/05/2019, 10/11/2016, and 07/31/2007 [facility]. BREAST TISSUE:There are scattered fibroglandular densities in both breasts. FINDINGS: No significant masses, calcifications, or other findings are seen in either breast. There has been no significant interval change. IMPRESSION: BI-RAD 1 NEGATIVE There is no mammographic evidence of malignancy. A 1 year screening mammogram is recommended. A letter will be sent to the patient with these results. The patient will be entered into a reminder system with a target due date of 1 year for her next screening exam. Electronically signed by: Baldo ivan/pearl:03/19/2022 17:05:44 Scenario Writer(s): Vinny Vences)(M), [facility] letter sent: Normal Exam Reading location: [facility] BI-RADS: 1 Negative Shubham Chamberlain MD IMG MAMMO ORDERABLES Final Result * HEMOGLOBIN A1C W/ ESTIMATED GLUCOSE (02/14/2022 6:23 AM CDT) Pathologist [facility] HGB-A1C 5.8 4.0 - 6.0 % 02/14/2022 7:20 AM CDT [facility] Est Average Glucose 119.8 mg/dL 02/14/2022 7:20 AM CDT [facility] Blood Venipuncture / Unknown 02/14/2022 6:23 AM CDT 02/14/2022 6:52 AM CDT Narrative [facility] - 02/14/2022 7:20 AM CDT HEMOGLOBIN A1C: DIABETIC PATIENTS: WELL-CONTROLLED: 6.2 - 7.0 INTERMEDIATE WELL-CONTROLLED: 7.0 - 9.0 POORLY-CONTROLLED: >9.0 Shubham Chamberlain MD CHEMISTRY ORDERABLES Final Result [facility] [address] [place] [address] * HEPATITIS C ANTIBODY (07/27/2021 11:42 AM CDT) Pathologist [facility] hepatitis C antibody 0.10 <1 S/CO [facility] ARCH [id number] B 07/28/2021 12:08 AM CDT [facility] Comment: Signal/Cutoff ratio < 0.79 is Nondetected Signal/Cutoff ratio 0.80-0.99 is Grayzone Signal/Cutoff ratio > 0.99 is Detected Supplemental assays are recommended if signal/cutoff ratio is >/=1.00. Signal/cutoff ratio result >/= 5.00 is 97% predictive of positivity for recombinant immunoblot assay (RIBA) and will be reported to the [place] Department of Public Health as required. Blood Venipuncture / Unknown 07/27/2021 11:42 AM CDT 07/27/2021 12:41 PM CDT us Shubham Chamberlain MD CHEMISTRY ORDERABLES Final Result [facility] [address] [place] [address], * (ABNORMAL) CMP (COMPREHENSIVE METABOLIC PANEL) (07/27/2021 11:42 AM CDT) SODIUM 138 136 - 144 mmol/L 07/27/2021 1:59 PM CDT [facility] POTASSIUM 4.0 3.5 - 5.1 mmol/L 07/27/2021 1:59 PM CDT [facility] CHLORIDE 102 100 - 110 mmol/L 07/27/2021 1:59 PM CDT [facility] CO2, VENOUS 23 22 - 32 mmol/L 07/27/2021 1:59 PM CDT [facility] ANION GAP 17.0 8.0 - 20.0 mmol/L 07/27/2021 1:59 PM CDT [facility] GLUCOSE 133(H) 70 - 99 mg/dL 07/27/2021 1:59 PM CDT [facility] BUN 15 6 - 20 mg/dL 07/27/2021 1:59 PM CDT [facility] CREATININE, BLOOD 0.62 0.60 - 1.10 mg/dL 07/27/2021 1:59 PM CDT [facility] BUN/CREATININE RATIO 24(H) 12 - 20 ratio 07/27/2021 1:59 PM CDT [facility] TOTAL PROTEIN 7.8 6.0 - 8.3 g/dL 07/27/2021 1:59 PM CDT [facility] ALBUMIN 4.7 3.5 - 5.2 g/dL 07/27/2021 1:59 PM CDT [facility] Comment: The colormetric methods used for the determination of Albumin may lead to falsely elevated test results in patients suffering from renal failure or insufficiency due to interference with other proteins. A/G RATIO 1.5 1.0 - 2.0 07/27/2021 1:59 PM CDT [facility] CALCIUM 9.5 8.9 - 10.3 mg/dL 07/27/2021 1:59 PM CDT [facility] T BILI 0.5 <=1.2 mg/dL 07/27/2021 1:59 PM CDT [facility] SGOT (AST) 19 <=32 U/L 07/27/2021 1:59 PM CDT [facility] SGPT (ALT) 15 <=41 U/L 07/27/2021 1:59 PM CDT [facility] ALKALINE PHOSPHATASE 95 35 - 105 U/L 07/27/2021 1:59 PM CDT [facility] GFR, EST. NONAFRICAN >60 >=60 07/27/2021 1:59 PM CDT [facility] GFR, EST. >60 >=60 021 1:59 PM CDT [facility] Comment: Creatinine Clearance is the preferred criteria for selecting drug dose adjustments in renally impaired patients. The GFR is provided as additional pertinent clinical information. GFR is reported in mL/min/1.73 sq m. IS THE PATIENT REQUIRED TO BE FASTING? No 07/27/2021 1:59 PM CDT [facility] Blood Venipuncture / Unknown 07/27/2021 11:42 AM CDT 07/27/2021 12:41 PM CDT us Shubham Chamberlain MD CHEMISTRY ORDERABLES Final Result [facility] [address] [place] [address] from Last 3 Months or Most Recently Relevant to Health Maintenance Insurance MEDICAID [place] MEDICARE C [employer] Care Teams Head Loft Worker Relationship Specialty Start Date End Date Shubham Chamberlain MD [address] [address] PCP - General Family Medicine 06/10/21 Nathanael Cannon MD Consulting Physician Orthopaedic Surgery 06/18/18
--- OUTSIDE RECORDS SUMMARY | 2025-02-06 06:32 | XMS_ITS | Encounter Summary ---
Author Organization [facility] Address [address] [place] [address] Phone Care Team Providers Care Clothes Marker Name Role Phone Nathanael Cannon MD Unavailable Shubham Chamberlain MD Primary Care Provider [phone] Reason for Visit * Reason Comments Medication Refill Encounter Details Date Type Department Care Team (Late st Contact Info) Description 11/18/2021 Refill [facility] - [place] [address] [place] [address] Shubham Chamberlain MD [address] [address] Medication Refill Social History Tobacco Use Types Packs/Day Years Used Date Smoking Tobacco: Every Day Cigarettes 0.5 45.7 Started: 06/11/1979 Smokeless Tobacco: Never Alcohol Use Standard Drinks/Week Comments Yes 2 (1 standard drink = 0.6 oz pur e alcohol) occassional PHQ-2 Answer Date Recorded Total Score - Questions 1-9 1 06/2021 Sexually Active Control Partners Comments Yes Male Comments No Sex and Gender Information Value Date Recorded Sex Assigned at Female 07/04/2023 10:53 AM CDT Legal Sex Female 11:51 PM CDT Gender Identity Female 07/04/2023 10:53 AM CDT Sexual Orientation Not on file documented as of this encounter Miscellaneous Notes * Telephone Encounter - Beatrice Mercado RN - 11/22/2021 11:01 AM CST Each last ordered 07/28/21 for 1 year CARRIER DRIVER documented in this encounter Plan of Treatment Not on file documented as of this encounter Visit Diagnoses Not on filedocumented in this encounter Additional Health Concerns Assessment Noted Time PHQ-9 Depression Total Score: 1 07/28/20 21 3:00 PM CDT documented as of this encounter Care Teams Clothes Marker Relationship Specialty Start Date End Date Shubham Chamberlain MD [address] [address] PCP - General Family Medicine 06/10/21 Nathanael Cannon MD Consulting Physician Orthopaedic Surgery 06/18/18 documented as of this encounter
--- OUTSIDE RECORDS SUMMARY | 2025-02-06 06:32 | XMS_ITS ---
Author Organization [facility] Address [facility] [facility] [address] [place] [address] Care Team Providers Care Calender Tender Name Role Phone Son Goff Unavailable [phone] Medications Medication SIG (Take, Route, Frequency, Duration) Notes Start Date End Date Status HYDROcodone-Acetaminophen 10-325 MG TAKE 1 TABLET BY MOUTH THREE TIMES DAILY NEEDED Oral for 30 Days Active metFORMIN HCl 500 MG TAKE 1 TABLET BY MOUTH TWICE DAILY Oral for 90 Days Active ALPRAZolam 1 MG 1 tablet Orally once a day Active ALPRAZolam 1 MG TAKE 1 TABLET BY MOUTH DAILY NEEDED FOR ANXIETY Oral for 30 Days Not-Taking Cyclobenzaprine HCl 5 MG TAKE 1 TABLET B Y MOUTH AT BEDTIME FOR 3 DAYS Oral for 3 Days Active Cyclobenzaprine HCl 5 MG TAKE 1 TABLET B Y MOUTH AT BEDTIME FOR 3 DAYS Oral for 3 Days Not-Taking Social History Sex Assigned At : Social History Observation Description Sex Assigned At Female Encounters Encounter Location Date Provider Diagnosis [facility] [employer] [address] [address] 09/11/2024 Son Goff Plan Of Treatment No Information Progress Notes * Calvin HALLHumphreyB:1965 (58 yo F)Acc No.[id number]:09/11/2024 Patient: Sil RAGLAND Provider: Rik GOFF MD :1965 A ge:58 Y S ex:Female Date:09/11/2024 Phone: Address:[address] [place], [place] [address] [id number] Subjective: * Chief Complaints: * * Medical History: * Medications: T aking ALPRAZolam 1 MG Tablet 1 tablet Orally once a day , Taking metFORMIN HCl 500 MG Tablet TAKE 1 TABLET BY MOUTH TWICE DAILY Oral , Taking HYDROcodone- Acetaminophen 10-325 MG Tablet TAKE 1 TABLET BY MOUTH THREE TIMES DAILY NEEDED Oral , Taking Cyclobenzaprine HCl 5 MG Tablet TAKE 1 TABLET BY MOUTH AT BEDTIME FOR 3 DAYS Oral , Not-Taking ALPRAZolam 1 MG Tablet TAKE 1 TABLET BY MOUTH DAILY NEEDED FOR ANXIETY Oral , Not-Taking Cyclobenzaprine HCl 5 MG Tablet TAKE 1 TABLET BY MOUTH AT BEDTIME FOR 3 DAYS Oral Objective: * Vitals: Assessment: Plan: * Treatment: * Procedure Codes: N S NO SHOW * Billing Information: * Visit Code: * Procedure Codes: NS NO SHOW. * Sign off status: Completed true * Provider: Rik GOFF MD Date: Generated for Gus panchal/Laura/Ke on: 02/06/2025 06:32 AM CDT
--- OUTSIDE RECORDS SUMMARY | 2025-02-06 06:32 | XMS_ITS | Continuity of Care Document ---
Author Organization Formerly [facility], later [facility] Address [address] [place], [place] [id number] [address] Phone Care Team Providers Care President [employer] Name Role Phone Ancillary, Services Unavailable Unavailable Allergies, Adverse Reactions, Alerts Substance Reaction Status Criticality No Known allergies Procedures Procedure Date 15 Minutes W Pt Office outpatient visit est mod 014 Office/outpatient visit,est, mod 2012 Office/outpatient visit,est, mod 2012 Office/outpatient visit,est, mod 2012 Office/outpatient visit,est, mod 2012 Office/outpatient visit,est, high Office/outpatient visit,est, mod 2011 X-ray exam of foot, complete Office/outpatient visit,new, mod 2011 Office/outpatient visit,est, mod 2010 Chest x-ray, 2 View Office/outpatient visit,est, mod 2010 Electrocardiogram, complete (ECG) Chest x-ray, 2 View X-ray exam of knee, 1 or2 views 011 Office/outpatient visit,est, mod 2010 Office/outpatient visit,new, min 2010 Advance Directives Directive Yes / No Effective Date File Name No Information Encounters Encounter Description Practice Location Reason(s) For Visit Diagnoses Date Provider Providers Copied on Encounter [facility], [address] [address] [id number] [place], [place], [id number] , [place] tel: [phone] [facility] Financial insecurity 2 Ancillary Services. [address] [place] [address], [address], [place]. tel:[phone] Office outpatient visit est [facility], [address] [address] [id number] [place], [place], [id number] , [place] tel: [phone] [facility] musculoskeleta l pain (chief complaint) Arthropathy 4 No Information Office/outpa tient visit,est, [facility], [address] [address] [id number] [place], [place], [id number] , [place] tel: [phone] [facility] arthalgias (chief complaint)med refill (chief complaint)dizz iness (chief complaint)lump (chief complaint) BMI Adult28.0-28.9 ArthropathyLum p Jul- 3 No Information Office/outpa tient visit,est, [facility], [address] [address] [id number] [place], [place], [id number] , [place] tel: [phone] [facility] meds refill (chief complaint)arth algias (chief complaint) BMI Adult 29.0-29.9LOC PRIM OSTEOART-L/LEG Apr- 3 No Information Office/outpa tient visit,est, [facility], [address] [address] [id number] [place], [place], [id number] , [place] tel: [phone] [facility] carpal tunnel symptoms (chief complaint) BMI Adult 29.0-29.9JOINT PAIN-FOREARM March- 3 No Information Office/outpa tient visit,[facility], [facility], [address] [address] [id number] [place], [place], [id number] , [place] tel: [phone] [facility] musculoskeleta l pain (chief complaint) BMI Adult28.0-28.9 ArthropathyLOC PRIM OSTEOART-L/LEG 3 No Information Office/outpa tient visit,[facility], [facility], [id number] [place], [place], [id number] , [place] tel: [phone] [facility] No Information 2 Rafael Reddy. [address] [facility], [place], [address], [place]. tel:[phone] Office/outpa tient visit,[facility], [facility], [address] [facility] [id number] [place], [place], [id number] , [place] tel: [phone] [facility] musculoskeleta l pain (chief complaint)arth algias (chief complaint) BMI Adult28.0-28.9 JOINT PAIN-ANKLEArth ropathyHALLUX VALGUS 2 No Information [facility], [address] [facility] [id number] [place], [place], [id number] , [place] tel: [phone] [facility] No Information 2 No Information Office/outpa tient visit,[facility], [id number] [place], [place], [id number] , [place] tel: [phone] [facility] back pain (chief complaint) OverweightArth ropathyMYALGIA AND MYOSITIS NOSChest Pain, Unspecified 2 No Information Office/outpa tient visit,[facility], [facility], [address] [facility] [id number] [place], [place], [id number] , [place] tel: [phone] [facility] cough (chief complaint) DepressionCoug hCough Jul- 1 No Information [facility], [address] [address] [id number] [place], [place], [id number] , [place] tel:+ [phone] [facility] No Information 1 No Information Office/outpa tient visit,est, [facility], [address] [address] [id number] [place], [place], [id number] , [place] tel:+ [phone] [facility] No Information 1 No Information [facility], [address] [address] [id number] [place], [place], [id number] , [place] tel:+ [phone] [facility] No Information 1 No Information Office/outpa tient visit,est, [facility], [id number] [id number] [place], [place], [address] , [place] tel: [phone] [facility] No Information 1 No Information Office/outpa tient visit,[facility], [facility], [address] [id number] [place], [place], [id number] , [place] tel: [phone] [facility] No Information 1 No Information Family History Family Member Type Diagnosis Age At Onset Mother Problem (finding) hypertension Mother Problem (finding) malignant neop lasm of breast in first degree relative Payers Payer name Insurance type Covered green party ID Authoriza tion(s) Medicare A [facility] [id number] Medicaid [id number] Social History Type Description Quantity Date Captured Comments Alcohol Use Details Unknown Caffeine Use Details Unknown Tobacco Use Status Smoking Status No Information Sex Female Chief Complaint And Reason For Visit No Information Reason For Referral Reason For Referral No Information Plan Of Treatment Date Type Action Status Goal FIT. Due on due Goal HPV. Due on due Goal Zoster vaccine ( ). Due on due Goal Tdap. Due on due Goal CT-Colonography. Due on due Goal Unhealthy drug u se screening. Due on due Goal Pap/HPV testing. Due on due Goal Td vaccine. Due on due Goal Sigmoidoscopy. Due on due Goal Hepatitis C scre ening. Due on due Goal FOBT. Due on due Goal Colonoscopy. Due on due Goal Mammogram. Due on due Goal Lipid panel. Due on due Goal Depression scree dmitriy. Due on due Goal FIT-DNA. Due on due Goal Influenza vaccin e. Due on due Referral Ordered: referred to Dr. Olivas [facility] Evaluate and Treat within 3 Months (related to Arthropathy) ordered Referral Ordered: referred to Dr. Olivas [facility] Evaluate and Treat within 3 Months Appointment date/timeframe: 3 Months ordered Referral Ordered: Referral: Ortho Surg. Evaluate and treat. Appointment date/timeframe: 11/09/2012 ordered Future Order: Radiology Order Ex tremity Ultrasound (non-vascular)-Complete (84061), Ordered on: Ordered Future Order: Radiology Order Fo ot Complete - 3 Views ([id number]), Ordered on: Ordered Future Order: Radiology Order Ch est AP/Lat - 2 Views ([id number]), Ordered on: Ordered History Of Present Illness Encounter Date Complaint History Of Prese nt Illness musculoskeletal pain Location: r ight knee. Additional information: pt. wants vicodin; patient was informed on 08/19/13 about narcotic med policy, and given a referral to Dr. Olivas; not happy with Dr. Olivas, as he did not refill her narcotic meds. Functional Status Date Functional Assessmen t No Information Instructions Date Instruction Additional Infor mation Please make a follow up appointment with specialist Related to Arthropathy Take medications as instructed R elated to Arthropathy Dietary counseling Related to BM I Adult 28.0 - 28.9 Decrease caloric intake Related to BMI Adult 28.0 - 28.9 Low fat diet Related to BMI A dult 29.0 - 29.9 Dietary counseling Related to BM I Adult 29.0 - 29.9 Decrease caloric intake Related to BMI Adult 29.0 - 29.9 Dietary counseling Related to BM I Adult 29.0 - 29.9 Handout Given Related to BMI A dult 28.0 - 28.9 Handout Given Related to BMI A dult 28.0 - 28.9 Assessments Type Assessment Date assessment Financial insecurity Patient Care Teams Name Effective Dates (start - stop) Status Members No Information
--- OUTSIDE RECORDS SUMMARY | 2025-02-06 06:33 | XMS_ITS ---
Author Organization [facility] Address [address] [place] [address] Care Team Providers Care Financial Planning Advisor Name Role Phone Son Goff Unavailable [phone] REASON FOR VISIT New Patient is here trying to get her medicine situation, PCP sent her here, unable to give UDS, stated she just went before she got here. Medications Medication SIG (Take, Route, Frequency, Duration) Notes Start Date End Date Status Cyclobenzaprine HCl 5 MG TAKE 1 TABLET B Y MOUTH AT BEDTIME FOR 3 DAYS Oral for 3 Days Not-Taking ALPRAZolam 1 MG TAKE 1 TABLET BY MOUTH DAILY NEEDED FOR ANXIETY Oral for 30 Days Not-Taking ALPRAZolam 1 MG 1 tablet Orally once a day Active Cyclobenzaprine HCl 5 MG TAKE 1 TABLET B Y MOUTH AT BEDTIME FOR 3 DAYS Oral for 3 Days Active HYDROcodone-Acetaminophen 10-325 MG TAKE 1 TABLET BY MOUTH THREE TIMES DAILY NEEDED Oral for 30 Days Active metFORMIN HCl 500 MG TAKE 1 TABLET BY MOUTH TWICE DAILY Oral for 90 Days Active Social History Tobacco Use: Social [...] Problem Status W/U Status Risk Notes Problem Long-term current use of drug therapy (381901308) Other manager intermediate (current) drug therapy (V58.69) Active confirmed Problem 50495069 EVENS (generalized anxiety disorder) (F41.1) Active confirmed Problem 40489700 Cannabis abuse (F12.10) Active confirmed Vital Signs Blood pressure systolic 116 mm Hg 05/15/20 24 Blood pressure diastolic 92 mm Hg 024 Heart Rate 92 /min 05/15/2024 Weight 160.6 lbs 05/15/2024 Weight-kg 72.85 kg 05/15/2024 Encounters Encounter Location Date Provider Diagnosis [facility] [address] [place] [address] 05/15/2024 Son Goff Other halfway (current) drug therapy V58.69 ; EVENS (generalized anxiety disorder) F41.1 and Cannabis abuse F12.10 Assessments Encounter Date Diagnosis (ICD Code) Assessment Notes Treatment Notes Treatment Clinical Notes Section Notes 05/15/2024 Other halfway (current) drug therapy (ICD9-CM - V58.69) Anxiety Disorder - Assessment: Patient is currently prescribed Alprazolam 30mg by primary care physician for anxiety disorder. - Plan: - Continue current Alprazolam 1 mg as prescribed until further evaluation. - Obtain a letter from the previous treating physician at [facility] regarding the long-term use of Alprazolam 3 mg daily - Patient advised to remain marijuana-free for at least three months. - Consider alternative non-addictive treatment options, such as Buspirone, for anxiety management. She was adviced not to use cannabis, she does not know the name of physician giving her xanax 3 mg a day for years, [place] [facility] [place] - Assessment: Patient experiences mood fluctuations, [...] Continue management under the care of Dr. Clrak. - Encourage regular follow-up appointments every three [...] referral to physical therapy if needed. 05/15/2024 EVENS (generalized anxiety disorder) (ICD-10 - F41.1) Anxiety Disorder - Assessment: Patient is currently prescribed Alprazolam 30mg by primary care physician for anxiety disorder. - Plan: - Continue current Alprazolam 1 mg as prescribed until further evaluation. - Obtain a letter from the previous treating physician at [facility] regarding the long-term use of Alprazolam 3 mg daily - Patient advised to remain marijuana-free for at least three months. - Consider alternative non-addictive treatment options, such as Buspirone, for anxiety management. She was adviced not to use cannabis, she does not know the name of physician giving her xanax 3 mg a day for years, she [place] [facility] [place] - Assessment: Patient experiences mood fluctuations, [...] letter from the previous treating physician at [facility] regarding the long-term use of Alprazolam 3 mg daily - Patient advised to remain marijuana-free for at least three months. - Consider alternative non-addictive treatment options, such as Buspirone, for anxiety management. She was adviced not to use cannabis, she does not know the name of physician giving her xanax 3 mg a day for years, [place] [facility] [place] - Assessment: Patient experiences mood fluctuations, [...] letter from the previous treating physician at [facility] regarding the long-term use of Alprazolam 3 mg daily - Patient advised to remain marijuana-free for at least three months. - Consider alternative non-addictive treatment options, such as Buspirone, for anxiety management. She was adviced not to use cannabis, she does not know the name of physician giving her xanax 3 mg a day for years, she moved from [facility] - Assessment: Patient experiences mood fluctuations, sleep [...] physical therapy if needed. Plan Of Treatment Treatment Notes Assessment Notes Other Learning About Depre ssion Screening material was printed Learning About Depression Screening material was printed Pending Test Test Name Order Date UDT 05/15/2024 Progress Notes * Torres HALLB:1965 (58 yo F)Acc No.[id number]:05/15/2024 Patient: Sil RAGLAND Provider: Rik GOFF MD :1965 A ge:58 Y S ex:Female Date:05/15/2024 Phone: Address:[address], [place], [id number] Subjective: * Chief Complaints: * N ew Patient is here trying to get her medicine situation, PCP sent her here, unable to give UDS, stated she just went before she got here. * HPI: D epression screening: PHQ-9 L ittle interest or pleasure in doing things S everal days, F eeling down, depressed, or hopeless S everal days, T rouble falling or staying asleep, or sleeping too much S everal days, F eeling tired or having little energy S everal days, P oor appetite or overeating S everal days, F eeling bad about yourself or that you are a failure, or have let yourself or your family down S everal days, T rouble concentrating on things, such as reading the newspaper or watching television S everal , M oving or speaking so slowly that other people could have noticed; or the opposite, being so fidgety or restless that you have been moving around a lot more than usual S everal days, T houghts that you would be better off or of hurting yourself in some way N ot at all, T otal Score 8 , I nterpretation M ild Depression. Chief Complaint: Sil, a 58-year-old single female, presents with a history of anxiety and depression. She reports feeling overwhelmed, experiencing shortness of breath, sweating, and difficulty concentrating. Psychiatric History: Sil has been previously treated for anxiety with 90mg of Xanax (1mg three times a day) by a physician at [facility] for years. Her current doctor prescribed 30mg of Xanax and recommended seeing a psychiatrist for further evaluation. She has a history of mood fluctuations, sleep disturbances, and feelings of guilt or hopelessness. Sil denies recent thoughts of self-harm or suicide but has previously been admitted to outpatient psychiatric treatment. Substance Use: Sil has been smoking for 40 years, consuming about a pack every two or three days. She reports occasional alcohol use, once every week or two, with one or two drinks at a time. Sil admits to infrequent marijuana use, with the last use being about a week ago. She denies any other street drug use, history of manic episodes, or low thyroid. Medications: Sil is currently taking Gabapentin, Alprazolam, Naproxen, and Cyclobenzaprine. Treatment History: She has been seeing Dr. Clark for the past year, with appointments every three to six months. Medical History: Sil has a history of type 2 diabetes, left wrist pain, and previous left knee issues with physical therapy. (Note: The reformatted text does not include any additional details beyond what was provided in the original text.). H istory of Presenting Problem: Pt was seen today and Urine drug screen was done. M anic episode: Manic N o past history of Aditi , No past history of Aditi.? S chizophrenia/Schizophreniform/Schizoaffective disorder/Brief reactive psychosis: Psychotic symptoms N o past history of psychosis , No past history of psychosis. P sychotherapy Information: Psychotherapy History C urrently in therapy N o. * ROS: P sychiatric: Delusions d enies, denies. S ubstance abuse m j.? S ee HPISee HPI. * Medical History: * Surgical History: * Hospitalization/Major Diagno stic Procedure: * Family History: F ather: . M other: 78 yrs. 5 brother(s) , 4 sister(s) . 3 son(s) , 1 daughter(s) . . * Social History: T obacco Use: T obacco Control (Standard) T obacco use: C urrent every day smoker. D rug/Alcohol: D o you smoke marijuana?: Admits, she has but not often. Do you drink alcohol?: Yes, every once a while. AUDIT-C (Standard) D id you have a drink containing alcohol in the past year? Y es, H ow often did you have six or more drinks on one occasion in the past year? 2 to 4 times a month (2 points), H ow many drinks did you have on a typical day when you were drinking in the past year? 1 or 2 drinks (0 point), H ow often did you have a drink containing alcohol in the past year? N ever (0 point), P oints 2 , I nterpretation N egative. * Medications: T akingALPRAZolam 1 MG Tablet 1 tablet Orally once a day metFORMIN HCl 500 MG Tablet TAKE 1 TABLET BY MOUTH TWICE DAILY Oral HYDROcodone-Acetaminophen 10-325 MG Tablet TAKE 1 TABLET BY MOUTH THREE TIMES DAILY NEEDED Oral Cyclobenzaprine HCl 5 MG Tablet TAKE 1 TABLET BY MOUTH AT BEDTIME FOR 3 DAYS Oral Taking ALPRAZolam 1 MG Tablet 1 tablet Orally once a day Taking metFORMIN HCl 500 MG Tablet TAKE 1 TABLET BY MOUTH TWICE DAILY Oral Taking HYDROcodone-Acetaminophen 10-325 MG Tablet TAKE 1 TABLET BY MOUTH THREE TIMES DAILY NEEDED Oral Taking Cyclobenzaprine HCl 5 MG Tablet TAKE 1 TABLET BY MOUTH AT BEDTIME FOR 3 DAYS Oral Not-TakingALPRAZolam 1 MG Tablet TAKE 1 TABLET BY MOUTH DAILY NEEDED FOR ANXIETY Oral Cyclobenzaprine HCl 5 MG Tablet TAKE 1 TABLET BY MOUTH AT BEDTIME FOR 3 DAYS Oral Not-Taking ALPRAZolam 1 MG Tablet TAKE 1 TABLET BY MOUTH DAILY NEEDED FOR ANXIETY Oral Not-Taking Cyclobenzaprine HCl 5 MG Tablet TAKE 1 TABLET BY MOUTH AT BEDTIME FOR 3 DAYS Oral DiscontinuedGabapentin , Notes to Pharmacist: unkown dosageNaproxen , Notes to Pharmacist: unkown dosagemetFORMIN HCl 500 MG Tablet 1 tablet with a meal Orally twice a day Medication List reviewed and reconciled with the patientDiscontinued Gabapentin , Notes to Pharmacist: unkown dosageDiscontinued Naproxen , Notes to Pharmacist: unkown dosageDiscontinued metFORMIN HCl 500 MG Tablet 1 tablet with a meal Orally twice a day Medication List reviewed and reconciled with the patient * Allergies: n o[Allergies Verified] Objective: * Vitals: B P:116/92mm Hg, HR:92/min, Wt:160.6lbs, Wt-k.85 kg. * Examination: P sychiatry: Appearance: w ell-groomed , well-groomed. Abnormal body movements: n one , none. Affect / mood: a ppropriate, full range , appropriate, full range. Attention: g ood , good. Attitude: c ooperative , cooperative. Homicidal ideation: n one , none. Suicidal ideation: n one , none. Memory status: d id not assess , did not assess. Degree of awareness of surroundings: w ithin normal limits , within normal limits. Delusions: n o , no. Hallucinations: n o , no. Impulse control: n ot assessed , not assessed. Insight: g ood , good. Intellectual functioning: a verage , average. Calculation - Intellectual function: n ot tested , not tested. Literacy - Intellectual function: n ot tested , not tested.? Comprehension - Intellectual function: a verage , average.? Abstract / proverb - Intellectual function: n ot tested , not tested. Similarities / opposites - Intellectual function: n ot tested , not tested. Judgement: n ot assessed , not assessed. Orientation: a wake, alert and oriented x 3 , awake, alert and oriented x 3. Perceptual disorders: n o perceptual disorder noted , no perceptual disorder noted. Psychomotor activity: w ithin normal range , within normal range. Speech / language: a ppropriate pitch/modulation , appropriate pitch/modulation. Thought content: a ppropriate , appropriate. Thought process: i ntact , intact. M ental Status Examination: Patient presents with anxiety symptoms including feeling overwhelmed, shortness of breath, sweating, and difficulty concentrating. Reports history of depression, mood fluctuations, sleep disturbances, and feelings of guilt or hopelessness. Denies current thoughts of self-harm or suicidal ideation. Patient appears coherent and oriented to time, place, and person. Physical Examination: General: Patient is a 58-year-old female, appears stated age. Musculoskeletal: History of left wrist pain and previous issues with left knee, managed with physical therapy. Neurological: Patient is on Gabapentin, which may indicate management of neuropathic pain or seizures, though specific indication not detailed. Assessment: * Assessment: 1. O ther halfway (current) drug therapy - V58.69 (Primary) 2 . G AD (generalized anxiety disorder) - F41.1 3 . C annabis abuse - F12.10 Anxiety Disorder - Assessment: Patient is currently prescribed Alprazolam 30mg by primary care physician for anxiety disorder. - Plan: - Continue current Alprazolam 1 mg as prescribed until further evaluation. - Obtain a letter from the previous treating physician at [facility] regarding the long-term use of Alprazolam 3 mg daily - Patient advised to remain marijuana-free for at least three months. - Consider alternative non-addictive treatment options, such as Buspirone, for anxiety management. She was adviced not to use cannabis, she does not know the name of physician giving her xanax 3 mg a day for years, [place] [facility] [place] - Assessment: Patient experiences mood fluctuations, [...] Consider referral to physical therapy if needed. Plan: * Treatment: * Labs: * L ab: UDT * Procedure Codes: 9 0792 PSYCHIATRIC DIAGNOSTIC EVAL W/MEDICAL [id number] DRUG TST PRSMV READ INSTRMNT ASSTD DIR OPT [id number] DRUG TEST PRSMV READ DIRECT OPTICAL OBS SC DATE, Modifiers: QW * Preventive Medicine: Counseling: B P Management: P RE-HYPERTENSIVE FOLLOW-UP PLAN: _ ___, R EFERRAL TO ALTERNATIVE / PRIMARY CARE PROVIDER: _ ____. * Billing Information: * Visit Code: * Procedure Codes: 19585 PSYCHIATRIC DIAGNOSTIC EVAL W/MEDICAL SERVICES. 28702 DRUG TST PRSMV READ INSTRMNT ASSTD DIR OPT OBS. 55108 DRUG TEST PRSMV READ DIRECT OPTICAL OBS SC DATE. Modifiers: QW * Sign off status: Completed true * Provider: Rik GOFF MD Date: 0 05/15/2024 Generated for Gus panchal/Laura/eTransmitting on: 0 02/06/2025 06:32 AM CDT History and Physical Notes * HPI (History of Present Illness) Category Sub-Category Detail Notes Category Not es Manic episode Manic No past history of Aditi , No past history of Aditi Schizophrenia/Schi zophreniform/Schiz oaffective disorder/Brief reactive psychosis Psychotic symptoms No past history of psychosis , No past history of psychosis History of Presenting Problem Pt was seen today and Urine drug screen was done Depression screening PHQ-9 Little interest or pleasure in doing things: Several days Chief Complaint: Sil, a 58-year-old single female, presents with a history of anxiety and depression. She reports feeling overwhelmed, experiencing shortness of breath, sweating, and difficulty concentrating. Psychiatric History: Sil has been previously treated for anxiety with 90mg of Xanax (1mg three times a day) by a physician at [facility] for years. Her current doctor prescribed 30mg of Xanax and recommended seeing a psychiatrist for further evaluation. She has a history of mood fluctuations, sleep disturbances, and feelings of guilt or hopelessness. Sil denies recent thoughts of self-harm or suicide but has previously been admitted to outpatient psychiatric treatment. Substance Use: Sil has been smoking for 40 years, consuming about a pack every two or three days. She reports occasional alcohol use, once every week or two, with one or two drinks at a time. Sil admits to infrequent marijuana use, with the last use being about a week ago. She denies any other street drug use, history of manic episodes, or low thyroid. Medications: Sil is currently taking Gabapentin, Alprazolam, Naproxen, and Cyclobenzaprine. Treatment History: She has been seeing Dr. Clark for the past year, with appointments every three to six months. Medical History: Sil has a history of type 2 diabetes, left wrist pain, and previous left knee issues with physical therapy. (Note: The reformatted text does not include any additional details beyond what was provided in the original text.) Feeling down, depressed, or hopeless: Se veral days Trouble falling or staying asleep, or sl eeping too much: Several days Feeling tired or having little energy: S everal days Poor appetite or overeating: Several day s Feeling bad about yourself o r that you are a failure, or have let yourself or your family down: Several days Trouble concentrating on thi ngs, such as reading the newspaper or watching television: Several days Moving or speaking so slowly that other people could have noticed; or the opposite, being so fidgety or restless that you have been moving around a lot more than usual: Several days Thoughts that you would be b renee off or of hurting yourself in some way: Not at all Total Score: 8 Interpretation: Mild Depression Psychotherapy Information Psychotherapy History Currently in therapy: No Examination Category Sub-Category Detail Notes Category Not es Psychiatry Appearance: well-groomed , well-groomed Mental Status Examination: Patient presents with anxiety symptoms including feeling overwhelmed, shortness of breath, sweating, and difficulty concentrating. Reports history of depression, mood fluctuations, sleep disturbances, and feelings of guilt or hopelessness. Denies current thoughts of self-harm or suicidal ideation. Patient appears coherent and oriented to time, place, and person. Physical Examination: General: Patient is a 58-year-old female, appears stated age. Musculoskeletal: History of left wrist pain and previous issues with left knee, managed with physical therapy. Neurological: Patient is on Gabapentin, which may indicate management of neuropathic pain or seizures, though specific indication not detailed. Attitude: cooperative , raiza ative Psychomotor activity: within normal rang e , within normal range Abnormal body movements: none , none Attention: good , good Degree of awareness of surroundings: wit hin normal limits , within normal limits Orientation: awake, alert and [place] ented x 3 , awake, alert and oriented x 3 Affect / mood: appropriate, full ra nge , appropriate, full range Speech / language: appropriate pitch/mo dulation , appropriate pitch/modulation Insight: good , good Judgement: not assessed , not a ssessed Thought process: intact , intact Thought content: appropriate , approp riate Perceptual disorders: no perceptual diso rder noted , no perceptual disorder noted Suicidal ideation: none , none Homicidal ideation: none , none Intellectual functioning: average , aver age Impulse control: not assessed , not a ssessed Memory status: did not assess , did not assess Delusions: no , no Hallucinations: no , no Calculation - Intellectual function: not tested , not tested Literacy - Intellectual function: not te sted , not tested Comprehension - Intellectual function: a verage , average Abstract / proverb - Intellectual functi on: not tested , not tested Similarities / opposites - I ntellectual function: not tested , not tested
--- NOTE | 2025-02-06 06:55 | WPDANESEPPF ---
Anes - Initial Pre Proc Eval Procedure: Operation Date: 02/06/25 07:30 Proposed Procedures p Left Basal Joint Arthroplasty with Mini Tightrope - Edil Lorenzo MD Date/Time: 02/06/25 06:55 Surgeon: dEil Lorenzo MD Pre Op Diagnosis: Osteoarthritis Left First Carpometacarpal Joint Patient Data Age: 59 Gender: F Height: 1.68 m Weight: 72.3 kg Allergies Allergy/AdvReac Type Severity Reaction Status Date / Time tramadol AdvReac Intermediate Nausea Verified 02/06/25 06:37 Home Medications ?Medication ?Instructions ?Recorded ?Confirmed ?Type meloxicam 7.5 mg tablet 7.5 mg PO DAILY PRN pain #90 tabs 03/23/23 02/06/25 Rx metformin 500 mg tablet 500 mg PO BID #180 tabs 11/21/23 02/06/25 Rx alprazolam 1 mg tablet 1 mg PO DAILY PRN anxiety #30 tabs 01/17/25 02/06/25 Rx hydrocodone 5 mg-acetaminophen 325 1 tablet PO Q8H PRN pain #30 tabs 02/03/25 02/06/25 Rx mg tablet cephalexin 500 mg capsule 500 mg PO Q12H #14 caps 02/06/25 Rx Patient hx anesthesia problems: none Family hx anesthesia problems: none Results Review: All pre-operative results and documents have been reviewed as part of the pre-operative evaluation. [facility] Past Medical History Medical History Diabetes Anxiety Arthritis Family History Family History (Updated 11/27/24 @ 08:48 by RAMIRO Law) Mother Diabetes mellitus Hypertension Sibling Diabetes mellitus Depression Father Social History Social History (Updated 11/27/24 @ 08:49 by RAMIRO Law) Smoking packs per day: 1 Smoking cigarettes per day: 20.0 Years smoked: 40 Smoking pack-years: 40.00 Smoking status: Current every day smoker Tobacco type: cigarettes Second hand tobacco smoke exposure: Yes Alcohol intake: current Substance use: never Substance use type: does not use Do You Feel Safe in your Home?: Yes Lack of Transportation: No Lack of Food: Never True Current Housing: I Have Housing Concerned About Future Housing: No Difficulty Paying Gas/Electric Bills: YES Difficulty Paying for Meds: No Currently Unemployed: No Education: High School Diploma/GED Difficulty w/ Childcare or Family Care: No Living arrangements: alone Occupation/Education: other Gender identity (if verbalized by the patient): Female Spiritual care concerns: No Anes - Eval Final PreProcedure Day of Procedure 02/06/25 06:55 Patient weight: overweight Heart: regular rate and rhythm Lungs: clear to auscultation Airway: Mallampati scale class II Neurological: alert and oriented Last oral intake: >/= 8 hours ASA classification: III Emergent: no Anesthetic plan: proceed Anesthesia type and monitoring: general LMA and standard monitoring Results Review: All pre-operative results and documents have been reviewed as part of the pre-operative evaluation. Informed Consent: The patient's anesthetic plan and its attendant risks and benefits were discussed with the patient/family/POA. Questions were solicited and answers provided to the satisfaction of the patient/family/POA.
--- NOTE | 2025-02-06 07:02 | PM.HPGS ---
History of Present Illness History of Present Illness Chief complaint: Osteoarthritis Left First Carpometacarpal Joint Narrative: Patient seen and examined in pre-operative holding area. No interval change in medical history or symptoms. Patient recalls previous discussion of benefits and alternatives to procedure. Continues to desire to proceed with left basal joint arthroplasty with mini-tightrope. Reviewed procedure, post-op expectations and risks including but not limited to bleeding, infection, injury to tendon/nerve/vessel, decreased hand function, stiffness, RSD, no change or worsening of symptoms, failure repair, hardware complciaiton. I discussed the possible use of assistants and their participation in the case. Patient stated understanding and signed the consent form wishing to proceed. Review of Systems Review of Systems: All systems reviewed & are unremarkable except as noted in HPI and below PMFSH Past Medical History Medical History Diabetes Anxiety Arthritis Family History Family History (Updated 11/27/24 @ 08:48 by RAMIRO Law) Mother Diabetes mellitus Hypertension Sibling Diabetes mellitus Depression Father Social History Social History (Updated 11/27/24 @ 08:49 by RAMIRO Law) Smoking packs per day: 1 Smoking cigarettes per day: 20.0 Years smoked: 40 Smoking pack-years: 40.00 Smoking status: Current every day smoker Tobacco type: cigarettes Second hand tobacco smoke exposure: Yes Alcohol intake: current Substance use: never Substance use type: does not use Do You Feel Safe in your Home?: Yes Lack of Transportation: No Lack of Food: Never True Current Housing: I Have Housing Concerned About Future Housing: No Difficulty Paying Gas/Electric Bills: YES Difficulty Paying for Meds: No Currently Unemployed: No Education: High School Diploma/GED Difficulty w/ Childcare or Family Care: No Living arrangements: alone Occupation/Education: other Gender identity (if verbalized by the patient): Female Spiritual care concerns: No Meds Home Medications and Allergies Home Medications ?Medication ?Instructions ?Recorded ?Confirmed ?Type meloxicam 7.5 mg tablet 7.5 mg PO DAILY PRN pain #90 tabs 03/23/23 02/06/25 Rx metformin 500 mg tablet 500 mg PO BID #180 tabs 11/21/23 02/06/25 Rx alprazolam 1 mg tablet 1 mg PO DAILY PRN anxiety #30 tabs 01/17/25 02/06/25 Rx hydrocodone 5 mg-acetaminophen 325 1 tablet PO Q8H PRN pain #30 tabs 02/03/25 02/06/25 Rx mg tablet Allergies Allergy/AdvReac Type Severity Reaction Status Date / Time tramadol AdvReac Intermediate Nausea Verified 02/06/25 06:37 Vital Signs Vital Signs - 24 hr 02/06/25 06:54 Temperature 36.4 C L Pulse Rate 86 Respiratory Rate 18 Blood Pressure 118/92 H Pulse Oximetry 97 Oxygen Delivery Room Air Exam Narrative: unchanged Assessment and Plan Assessment and plan (1) Osteoarthritis of first carpometacarpal joint of left hand: Qualifiers: Osteoarthritis type: primary Qualified Code(s): M18.12 - Unilateral primary osteoarthritis of first carpometacarpal joint, left hand Code(s): M18.12 - Unilateral primary osteoarthritis of first carpometacarpal joint, left hand Status: Acute Assessment and Plan: cont as above
--- NOTE | 2025-02-06 07:03 | W.PM.PROC2 ---
Procedure Note - Detailed Date of Procedure 02/06/25 Pre-op Diagnosis Osteoarthritis Left First Carpometacarpal Joint Post-op Diagnosis Same Procedure Performed left basal joint arthroplasty with mini-tigtrope Surgeon Edil Lorenzo MD Billiard Table Assembler wang weinstein pa-c Anesthesia General Description of Procedure INFORMED CONSENT: The patient was seen and examined and marked in the pre-op area.? The patient signed the consent form. PROCEDURE IN DETAIL:The patient taken back to OR on the stretcher in supine position. Time out performed with anesthesia, surgeon and staff agreeing on patient's name site and surgery to be performed SCDs were placed on the lower extremities and inflated. A tourniquet was placed on {left} upper extremity and antibiotics given IV After anesthesia administered sedation I injected {}cc 1%lido with epi and 0.5% marcaine plain at the operative site The?{left upper extremity}?was prepped and draped in sterile fashion the??{left upper extremity} was? exsanguinated with Esmarch bandage and tourniquet inflated to 250mmHg I proceeded with making a longitudinal incision between the 1st and 3rd extensor compartments over the trapezium through skin and dermis with a 15 blade scalpel. Littler scissors were used to spread through subcutaneous tissue down to the joint capsule. A branch of the dorsal radial sensory nerve was identified and protected throughout the procedure. I made my capsular incisions with 15 blade scalpel and then proceeded with using a combination of 15 blade, McGlamry elevator and Jacob elevator and rongeur to elevate capsular flaps and resect the trapezium. Mini fluoroscopy was used to verify the initial position of the trapezium and to confirm resection. The FCR was identified and protected during resection. Next I proceeded with making a longitudinal incision over the dorsal base of the 2nd metacarpal through skin and dermis with a 15 blade scalpel. Littler scissors were used to spread through subcutaneous tissue down to the 2nd metacarpal base. I made an incision in the periosteum on the ulnar aspect and reflected this. Next I used the Arthrex mini C ring guide to proceed with placing the double gauged K-wire in a radial to ulnar direction from the base of the 1st metacarpal out of the base of the 2nd metacarpal. Wire placement was verified on multiple views with fluoroscopy. The mini tightrope was passed in a radial ulnar direction. Noting reasonable seeding of the button on the 1st metacarpal. The second button was provisionally tightened down to the 2nd metacarpal. Fluoroscopic evaluation noted good maintenance of the trapezium resection space. There was no subsidence on axial load of the thumb and there was no impingement on a range of motion. I completed timing the button down to the 2nd metacarpal. I irrigated with normal saline. Capsule and periosteum was closed on both incisions with 3-0 Vicryl suture. 4-0 chromic was used for skin closure. A dressing of xeroform, 4x4, lisa, and an ulnar gutter splint was applied and secured with an daniel bandage after the tourniquet was let down noting the hand was warm and well perfused. The patient was then awaken from anesthesia and transferred to the recovery room in stable condition.? Complications - none EBL- 0cc Disposition - home in stable conditions Wang Weinstein PA-C was essential for positioing, retraction, fluoro, instrumentaiton, closure and dressing placement G Billing Surgery - Charge Forward: Surgery Billing ([id number] for wang)
[2025-02-06 07:11] LABS: Glucose Point of Care 190 mg/dl (65-105)
[2025-02-06] MEDS: LACTATED RINGERS 1,000 ML 30 ML IV CONT ×2 (07:17→08:27)
--- NOTE | 2025-02-06 07:25 | SUR.PREOP ---
DR [facility]
[2025-02-06] MEDS: ceFAZolin SODIUM 2 GM/20 ML SW SYRINGE IV PUSH (07:26)
[2025-02-06] MEDS: LIDO 1%/EPINEPHRINE 1:100,000 10 ML VIAL 4.5 ML INFILTRATE (07:33)
[2025-02-06] MEDS: BUPivacaine HCL 0.5% 10 ML AMP 4.5 ML INFILTRATE (07:33)
[2025-02-06] MEDS: fentaNYL CITRATE INJ (*CRX) 100 MCG/2 ML VIAL 25 MCG IV PUSH ×7 (08:40→08:59)
[2025-02-06] MEDS: ONDANSETRON INJ 4 MG/2 ML VIAL IV PUSH (09:27)
--- NOTE | 2025-02-06 09:44 | WPDANESPN ---
Anes - Prog Note Post-Op Date/Time: 02/06/25 09:44 Cardiovascular status: normal Respiratory status: normal Airway patency: baseline Mental status: baseline Post-Op hydration status: normal Vital Signs: Last Vital Signs Temp 36.1 C L 02/06/25 08:27 Pulse 81 02/06/25 09:21 Resp 14 02/06/25 09:21 BP 120/80 02/06/25 09:21 Pulse Ox 93 02/06/25 09:21 O2 Del Method Room Air 02/06/25 09:21 O2 Flow Rate 8 02/06/25 08:55 Pain Score (VAS): 0 I/O: Intake & Output 02/05/25 02/06/25 02/06/25 23:59 07:59 15:59 Intake Total 300 Balance 300 02/06/25 07:05 POC Capillary Glucose 190 H Post-procedural complaints: none Patient Feedback: Patient satisfied with anesthetic care. Other Findings: Patient vital signs back to baseline. Patient denies nausea and vomiting. Patient's pain under control. Patient OK for discharge.
--- NOTE | 2025-02-06 10:00 | SUR.PHASEII ---
Patient and family state they have no questions upon discharge. Packet was reviewed multiple times, patient still seems confused about dressing care and follow up. Reiterated need to leave splint and dressing in place until patient sees therapy. Patient is discharged with script for therapy and states she has a location to call tomorrow. Patient states she knows she needs to honing machine set up operator antibiotic and take as prescribed until all pills are gone. Chan is present and confirms he understands as well. Staff will reach out tomorrow for post op call and to reeducate.
[2025-02-06 10:12] LABS: Glucose Point of Care 267 mg/dl (65-105)
== END 2025-02-06 10:07 | disposition home or self-care (01) ==
PROVIDERS: PCP Internal Medicine; Visit Provider Plastic Surgery
PROC: (CPT 25447; principal; 2025-02-06 07:30)
DX: M18.12 Unilateral primary osteoarthritis of first carpometacarpal joint, left hand (principal)
CPT/HCPCS: 25447; 99199

== ENCOUNTER 2025-02-06 08:16 | Outpatient (NON) | payer MEDICARE, MEDICAID, SELFPAY | END 2025-02-06 08:17 | disposition home or self-care (01) | LOC: ANHLAB 02-07 08:18 | PROVIDERS: PCP Internal Medicine; Visit Provider Plastic Surgery | DX: M18.12 Unilateral primary osteoarthritis of first carpometacarpal joint, left hand (principal) | CPT/HCPCS: 88309; 88311 ==

== ENCOUNTER 2025-02-19 10:03 | Outpatient (CLI) | payer MEDICARE, MEDICAID, SELFPAY ==
--- NOTE | ~2025-02-19 | XR_ITS ---
Left Hand Technique: PA, oblique, and lateral views were obtained. Clinical History: Arthritis COMPARISON: 01/30/2024 Findings: No acute fracture or dislocation is seen. Status post interval resection of the trapezium. Joint spaces are preserved. Soft tissues are unremarkable. Impression: No acute abnormality. Status post interval resection of the trapezium. Reviewed, dictated and finalized at location . Impression: No acute abnormality. Status post interval resection of the trapezium.
--- OUTSIDE RECORDS SUMMARY | 2025-02-19 11:17 | XMS_ITS | Encounter Summary ---
Author Organization [facility] Address [address] [place] [address] Phone Care Team Providers Care Machine Candle Molder Name Role Phone Nathanael Cannon MD Unavailable Shubham Chamberlain MD Primary Care Provider Justin Salazar DO Primary Care Provider Reason for Visit * Reason Comments Medication Refill Encounter Details Date Type Department Care Team (Late st Contact Info) Description 11/18/2021 Refill [facility] - Family Medicine [facility] [address] [place] [id number] Shubham Chamberlain MD [address] [address] Medication Refill Social History Tobacco Use Types Packs/Day Years Used Date Smoking Tobacco: Every Day Cigarettes 0.5 45.7 Started: 06/11/1979 Smokeless Tobacco: Never Alcohol Use Standard Drinks/Week Comments Yes 2 (1 standard drink = 0.6 oz pur e alcohol) occassional PHQ-2 Answer Date Recorded Total Score - Questions 1-9 1 0 06/2021 Sexually Active Control Partners Comments Yes [...] Each last ordered 07/28/21 for 1 year R RELATIONS ANALYST documented in this encounter Plan of Treatment Not on file documented as of this encounter Visit Diagnoses Not on filedocumented in this encounter Additional Health Concerns Assessment Noted Time PHQ-9 Depression Total Score: 1 07/28/20 21 3:00 PM CDT documented as of this encounter Care Teams Machine Candle Molder Relationship Specialty Start Date End Date Shubham Chamberlain MD [address] [facility] [address] [place] [address] PCP - General Family Medicine 06/10/21 02/08/25 Justin Salazar DO [address] [facility] [address] [place] [address] PCP - General Internal Medicine 02/09/25 Nathanael Cannon MD Consulting Physician Orthopaedic Surgery 06/18/18 documented as of this encounter
--- OUTSIDE RECORDS SUMMARY | 2025-02-19 11:18 | XMS_ITS | Referral Summary ---
Author Organization [facility] Address [address] [place] [address] Care Team Providers Care Tankroom Worker Name Role Phone Justin Salazar Primary Care Provider [phone] Allergies No known active allergies Medications ALPRAZolam [...] (08/23/2018): Added automatically from request for surgery [id number] Type 2 diabetes mellitus treated without insulin [...] on file Legal Sex Female 8:43 PM INTERFACE DEVELOPER Gender Identity Not on file Sexual Orientation [...] CREATININE RATIO, URINE Routine 11/07/2024 2:15 PM INTERFACE DEVELOPER EGFR STAT 07/30/2021 10:40 AM CDT from Last 3 Months or Most Recently Relevant to Health Maintenance Results * Albumin Creatinine Ratio, Urine (11/07/2024 2:15 PM INTERFACE DEVELOPER) Albumin Ur <12.0 mg/L Comment: Interpretive Data No reference range established. Current interpretive data was last revised 2019. Testing performed by: [address] [address] Creatinine Ur 35.7 mg/dL [facility] ([facility]) Comment: Interpretive Data No reference range established. Current interpretive data was last revised 2019. Testing performed by: [address] [address] Albumin Creatinine Ratio, Ur See Comment 1 - 29 [facility] ([facility]) Comment: Unable to calculate Testing performed by: [address] [address] Urine 11/07/2024 2:15 PM INTERFACE DEVELOPER 11/07/2024 5:42 PM INTERFACE DEVELOPER us Edil oLrenzo MD LAB URINE ORDERABLES nal Result [facility] ([place]) [address] [facility] Department [place] [address] * eGFR (07/30/2021 10:40 AM CDT) eGFR [...] BLOOD ORDERABLES F inal Result [facility] ([place] [address] [facility] Department [place] [employer] [place] [address] from Last 3 Months or Most Recently Relevant to Health Maintenance Insurance [employer] [facility] MEDICARE HMO [employer] [facility] MEDICARE HMO IDPA [facility] MEDICARE HMO MEDICARE ADVANTAGE Care Teams Tankroom Worker Relationship Specialty Start Date End Date Justin Salazar DO [address] [facility] [address] [place], [place] [id number] PCP - General Internal Medicine 11/14/24
--- OUTSIDE RECORDS SUMMARY | 2025-02-19 11:18 | XMS_ITS | Encounter Summary ---
Author Organization [facility] Address [address] [place]: Epic Prelude ADT SARY SHETTY [address] Care Team Providers Care Correction Officer Reformatory Name Role Phone Unavailable Primary Care Provider Unavailabl e Encounter Details Date Type Department Care Team (Late st Contact Info) Description 11/30/1994 Outpatient Historical Conversion, History Social History Tobacco Use Types Packs/Day Years Used Date Smoking Tobacco: Never Assessed Comments Unknown Sex and Gender Information Value Date Recorded Sex Assigned at Not on file Legal Sex Female 5:08 AM ROLLER MAN Gender Identity Not on file Sexual Orientation Not on file documented as of this encounter Plan of Treatment Not on file documented as of this encounter Visit Diagnoses Not on filedocumented in this encounter
--- OUTSIDE RECORDS SUMMARY | 2025-02-19 11:18 | XMS_ITS | Clinical Summary ---
Author Organization [facility] Address [address] [place] [address] Phone Care Team Providers Care Needle Loom Setter Name Role Phone Nathanael Cannon MD Unavailable [phone] Justin Salazar DO Primary Care Provider [phone] Allergies No known active allergies Medications triamcinolone [...] complication, without long-term current use of insulin Diagnosis: Diabetes type 2 Blood testing frequency: once a day E11.9 1 Each 3 Active Glucose Blood StripIndication s:Type 2 diabetes mellitus without complication, without long-term current use of insulin Use to check blood glucose levels once daily as directed. E11.9 100 Strip 11 3 Active Lancets MiscIndications :Type 2 diabetes mellitus without complication, without long-term current use of insulin Use to check blood glucose levels once daily as directed. E11.9 100 Lancet 11 3 Active Alcohol Swabs (Alcohol Prep) 70 % PadsIndications :Type 2 diabetes mellitus without complication, without long-term current use of insulin Use to check blood glucose levels once [...] mouth daily. 100 Tablet 3 3 Active ibuprofen (MOTRIN) 800 MG Tablet Take 1 Tablet by mouth 3 times daily as needed for Mild or more severe pain. 30 Tablet 5 Active acetaminophen (TYLENOL) 325 MG Tablet Take 2 Tablets by mouth every 4 hours as needed for Fever or Mild or more severe pain. 60 Tablet 5 Active Active Problems Problem Noted Date Diagnosed [...] 09/19/2016 01/26/2018 Lipoma of right shoulder 09/19/2016 Encounters Date Type Department Care Team Description 02/09/2025 8:16 AM CDT - 02/09/2025 9:56 AM CDT Emergency [facility] Emergency [address] [place] [address] Dena French MD Left hand pain Discharge Disposition: Discharged to home or Selfcare 02/09/2025 Travel from Last 3 Months Immunizations Immunization Administration Dates Next Due TDAP [...] Sign Reading Time Taken Comments Blood Pressure 126/82 02/09/2025 9:55 AM CDT Pulse 76 02/09/2025 9:55 AM CDT Temperature 36.4 C (97.5 F) 02/09/2025 8:21 AM CDT Respiratory Rate 18 02/09/2025 9:55 AM CDT Oxygen Saturation 98% 02/09/2025 9:55 AM CDT Inhaled Oxygen Concentration - - Weight 73.5 kg (162 lb 0.6 oz) 02/09/2025 8:21 A M CDT Height 167.6 cm (5' 6 ) 02/09/2025 8:21 AM CDT Body Mass Index 26.15 02/09/2025 8:21 AM CDT Plan of Treatment Health Maintenance Due Date Last Done Comments Diabetes: Foot Exam 1963 Pneumococcal Immunization (50+ years) (1 of 2 - PCV) 1982 Colonoscopy 2008 Colorectal Cancer Screening 2008 Cologuard 2013 Immunochemical Fecal Occult Blood 2013 Lung Cancer Screening 2013 Zoster Immunization (1 of 2) 2013 Diabetes: Nephropathy Screening 07/27/2022 07/27/2021, 07/08/2019, 02/21/2018, Additional history exists Diabetes: Hemoglobin A1c 08/17/202202/14/2 022, 07/27/2021, 07/08/2019, Additional history exists Mammogram [...] Procedure Name Priority Date/Time Associated Diagnosis Comments XR HAND 3 OR MORE VIEWS LEFT STAT 02/09/2025 8:42 AM CDT HM DILATED EYE EXAM 05/15/2023 1 2:00 AM CDT PATHOLOGY CYTOLOGY RING ROLLING MACHINE OPERATOR Routine 07/28/2022 2:19 PM CDT Encounter for [...] Recently Relevant to Health Maintenance Results * XR HAND 3 OR MORE VIEWS LEFT (02/09/2025 8:42 AM CDT) Anatomical Region Laterality Modality UPPER EXTREMITY, hand Left Digital Ra diography 02/09/2025 8:53 AM CDT Impressions 02/09/2025 8:55 AM CDT IMPRESSION: No acute osseous abnormality. No radiographic evidence of osteomyelitis. Left hand and wrist soft tissue swelling most pronounced along the dorsum of the hand at the level of the distal meta carpal/MCP joints. Narrative 02/09/2025 8:55 AM CDT EXAM DESCRIPTION: XR HAND 3 OR MORE VIEWS LEFT REASON FOR STUDY: left hand pain and increase swelling on posterior side of hand at the base of digit post surgery 02/06/25. limited ROM due to pt being casted TECHNIQUE: 3 radiographic view(s) of the left hand . COMPARISON: 07/27/2021 FINDINGS: Fiberglass splint is present. There has been resection of the trapezium with tight rope internal fixation of the bases of 1st and 2nd metacarpals as part of 1st CMC arthroplasty. There is no acute fracture. No radiographic evidence of osteomyelitis. Mild osteopenia. Joint spaces are otherwise normal. There is hand and wrist soft tissue swelling most pronounced along the dorsum of the hand at the level of the distal meta carpal/MCP joints. THIS IS AN ELECTRONICALLY VERIFIED FINAL REPORT 02/09/2025 8:53 AM - Electronically signed by Marie Pitt M.D. AT: AT Report ID: [id number] Reading Location: [place] [address] Procedure Note Marie Pitt MD - 02/09/2025 EXAM DESCRIPTION: XR HAND 3 OR MORE VIEWS LEFT REASON FOR STUDY: left hand pain and increase swelling on posterior side of hand at the base of digit post surgery 02/06/25. limited ROM due to pt being casted TECHNIQUE: 3 radiographic view(s) of the left hand . COMPARISON: 07/27/2021 FINDINGS: Fiberglass splint is present. There has been resection of the trapezium with tight rope internal fixation of the bases of 1st and 2nd metacarpals as part of 1st CMC arthroplasty. There is no acute fracture. No radiographic evidence of osteomyelitis. Mild osteopenia. Joint spaces are otherwise normal. There is hand and wrist soft tissue swelling most pronounced along the dorsum of the hand at the level of the distal meta carpal/MCP joints. THIS IS AN ELECTRONICALLY VERIFIED FINAL REPORT 02/09/2025 8:53 AM - Electronically signed by Marie Pitt M.D. AT: AT Report ID: [id number] Reading Location: [id number] IMPRESSION: No acute osseous abnormality. No radiographic evidence of osteomyelitis. Left hand and wrist soft tissue swelling most pronounced along the dorsum of the hand at the level of the distal meta carpal/MCP joints. Dena French MD IMG DIAGNOSTIC ORDERABLES Fin al Result * HM DILATED EYE EXAM (05/15/2023 12:00 AM CDT) 05/15/2023 us Provider Scan PROCEDURE/MINOR SURGICAL ORDERAB LES Final Result SCAN * PATHOLOGY CYTOLOGY RING ROLLING MACHINE OPERATOR (07/28/2022 2:19 PM CDT) SPECIMEN ADEQUACY Satisfactory for evaluation. Endocervical/transf ormation zone component is absent. 08/08/2022 9:36 AM CDT [facility] DESCRIPTIVE DIAGNOSIS NEGATIVE FOR INTRAEPITHELIAL LESIONS OR MALIGNANCY. 08/08/2022 9:36 AM CDT [facility] Reflex if ASCUS? Yes 08/08/2022 9:36 AM CDT [facility] Automated Examination This sample was not evaluated by the automated imaging and review system due to technical and/or biologic factor(s). The case was screened, reviewed, and finalized by a oracle data warehouse developer and/or pathologist. 08/08/2022 9:36 AM CDT [facility] Disclaimer The PAP smear is a [...] unless clinically indicated. 08/08/2022 9:36 AM CDT [facility] Other CERVIX UTERI STRUCTURE / Unknown Non-Phlebotomy Collection / Unknown 07/28/2022 2:19 PM CDT 07/28/2022 2:20 PM CDT us David Parry MD PATHOLOGY/CYTOLOGY ORDERABLES Fi nal Result [facility] [address] [id number], * (ABNORMAL) HUMAN PAPILLOMA VIRUS (HPV) (07/28/2022 11:01 AM CDT) HPV OTHER HIGH RISK TYPES, PCR POSITIVE(A) NEGATIVE 07/29/2022 2:51 PM CDT [facility] Comment: Positive for one or more of the following Other High HPV types: 31, 33, 35, 39, 45, 51, 52, 56, 58, 59, 66, and 68. False-positive results have been reported with molecular assays. If these positive results are discordant with clinical/cytohistologic findings, repeat testing may be considered after an appropriate interval. HPV TYPE 16 POSITIVE(A) NEGATIVE 07/29/2022 2:51 PM CDT [facility] Comment:False-positive resul ts have been reported with molecular assays. If these positive results are discordant with clinical/cytohistologic findings, repeat testing may be considered after an appropriate interval. HPV TYPE 18 NEGATIVE NEGATIVE 07/29/2022 2:51 PM CDT [facility] Comment: A negative high-risk HPV result [...] OR DIAGNOSTIC SCREENING 07/29/2022 2:51 PM CDT [facility] Other Non-Phlebotomy Collection / Unknown 07/28/2022 11:01 AM CDT 07/28/2022 11:01 AM CDT Narrative [facility] - 07/29/2022 2:51 PM CDT Performed by Real-Time Polymerase Chain Reaction (PCR) on the Ananya Markus 4800. This assay has been validated for use with post-aliquot samples from the [employer] T5000 processor. David Parry MD LAB SEND OUTS Final Result [facility] [address] [place] [address], [facility] [address] [place] [address] * ALBERTO SCREENING BILATERAL DIGITAL W CAD [...] to exams dated: 08/05/2019, 10/11/2016, and 07/31/2007 [facility]. BREAST TISSUE:There are scattered fibroglandular densities in [...] next screening exam. Electronically signed by: Baldo Mcneil M.D. /penrad:03/19/2022 17:05:44 Assisted Living Housekeeper(s): Vinny Vences)(Sania), [facility] letter sent: Normal Exam Reading location: [facility] BI-RADS: 1 Negative Procedure Note Baldo Mcneil [...] to exams dated: 08/05/2019, 10/11/2016, and 07/31/2007 [facility]. BREAST TISSUE:There are scattered fibroglandular densities in [...] next screening exam. Electronically signed by: Baldo ivan/penrad:03/19/2022 17:05:44 Assisted Living Housekeeper(s): Ayan Vences(Aston)(M), [facility] letter sent: Normal Exam Reading location: [facility] BI-RADS: 1 Negative Shubham Chamberlain MD IMG MAMMO ORDERABLES Final Result * HEMOGLOBIN A1C W/ ESTIMATED GLUCOSE (02/14/2022 6:23 AM CDT) HGB-A1C 5.8 4.0 - 6.0 % 02/14/2022 7:20 AM CDT [facility] Est Average Glucose 119.8 mg/dL 02/14/2022 7:20 AM CDT [facility] Blood Venipuncture / Unknown 02/14/2022 6:23 AM CDT 02/14/2022 6:52 AM CDT Narrative [facility] - 02/14/2022 7:20 AM CDT HEMOGLOBIN A1C: DIABETIC PATIENTS: WELL-CONTROLLED: 6.2 - 7.0 INTERMEDIATE WELL-CONTROLLED: 7.0 - 9.0 POORLY-CONTROLLED: >9.0 Shubham Chamberlain MD CHEMISTRY ORDERABLES Final Result [facility] [address] [place] [address] * HEPATITIS C ANTIBODY (07/27/2021 11:42 AM CDT) hepatitis C antibody 0.10 <1 S/CO [facility] ARCH [id number] B 07/28/2021 12:08 AM CDT [facility] Comment: Signal/Cutoff ratio < 0.79 is Nondetected Signal/Cutoff ratio 0.80-0.99 is Grayzone Signal/Cutoff ratio > 0.99 is Detected Supplemental assays are recommended if signal/cutoff ratio is >/=1.00. Signal/cutoff ratio result >/= 5.00 is 97% predictive of positivity for recombinant immunoblot assay (RIBA) and will be reported to the [place] Department of Public Health as required. Blood Venipuncture / Unknown 07/27/2021 11:42 AM CDT 07/27/2021 12:41 PM CDT us Shubham Chamberlain MD CHEMISTRY ORDERABLES Final Result [facility] [address] [place] [address], [place] * (ABNORMAL) CMP (COMPREHENSIVE METABOLIC PANEL) (07/27/2021 11:42 AM CDT) SODIUM 138 136 - 144 mmol/L 07/27/2021 1:59 PM CDT [facility] POTASSIUM 4.0 3.5 - 5.1 mmol/L 07/27/2021 1:59 PM CDT [facility] CHLORIDE 102 100 - 110 mmol/L 07/27/2021 1:59 PM CDT [facility] CO2, VENOUS 23 22 - 32 mmol/L 07/27/2021 1:59 PM CDT [facility] ANION GAP 17.0 8.0 - 20.0 mmol/L 07/27/2021 1:59 PM CDT [facility] GLUCOSE 133(H) 70 - 99 mg/dL 07/27/2021 1:59 PM CDT [facility] BUN 15 6 - 20 mg/dL 07/27/2021 1:59 PM CDT [facility] CREATININE, BLOOD 0.62 0.60 - 1.10 mg/dL 07/27/2021 1:59 PM CDT [facility] BUN/CREATININE RATIO 24(H) 12 - 20 ratio 07/27/2021 1:59 PM CDT [facility] TOTAL PROTEIN 7.8 6.0 - 8.3 g/dL 07/27/2021 1:59 PM CDT [facility] ALBUMIN 4.7 3.5 - 5.2 g/dL 07/27/2021 1:59 PM CDT [facility] Comment: The colormetric methods used for the determination of Albumin may lead to falsely elevated test results in patients suffering from renal failure or insufficiency due to interference with other proteins. A/G RATIO 1.5 1.0 - 2.0 07/27/2021 1:59 PM CDT [facility] CALCIUM 9.5 8.9 - 10.3 mg/dL 07/27/2021 1:59 PM CDT [facility] T BILI 0.5 <=1.2 mg/dL 07/27/2021 1:59 PM CDT [facility] SGOT (AST) 19 <=32 U/L 07/27/2021 1:59 PM CDT [facility] SGPT (ALT) 15 <=41 U/L 07/27/2021 1:59 PM CDT [facility] ALKALINE PHOSPHATASE 95 35 - 105 U/L 07/27/2021 1:59 PM CDT [facility] GFR, EST. NONAFRICAN >60 >=60 07/27/2021 1:59 PM CDT [facility] GFR, EST. >60 >=60 021 1:59 PM CDT [facility] Comment: Creatinine Clearance is the preferred criteria for selecting drug dose adjustments in renally impaired patients. The GFR is provided as additional pertinent clinical information. GFR is reported in mL/min/1.73 sq m. IS THE PATIENT REQUIRED TO BE FASTING? No 07/27/2021 1:59 PM CDT [facility] Blood Venipuncture / Unknown 07/27/2021 11:42 AM CDT 07/27/2021 12:41 PM CDT us Shubham Chamberlain MD CHEMISTRY ORDERABLES Final Result [facility] [address] [place] [address] from Last 3 Months or Most Recently Relevant to Health Maintenance Insurance MEDICA[place] MEDICARE C [employer] Care Teams Needle Loom Setter Relationship Specialty Start Date End Date Justin Salazar DO [address] [place] [address] PCP - General Internal Medicine 02/09/25 Nathanael Cannon MD Consulting Physician Orthopaedic Surgery 06/18/18
--- OUTSIDE RECORDS SUMMARY | 2025-02-19 11:18 | XMS_ITS | Clinical Summary ---
Author Organization [facility] Address [address] 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
--- OUTSIDE RECORDS SUMMARY | 2025-02-19 11:18 | XMS_ITS | Clinical Summary ---
Author Organization [facility] Address [address] [place] [address] Care Team Providers Care Voice Network Engineer Name Role Phone Justin Salazar Primary Care Provider [phone] Allergies No known active allergies Medications ALPRAZolam [...] (08/23/2018): Added automatically from request for surgery [id number] Type 2 diabetes mellitus treated without insulin [...] on file Legal Sex Female 8:43 PM STRAP STITCHER Gender Identity Not on file Sexual Orientation [...] 03/16/2022, 08/05/2019, Additional history exists Influenza Vaccine (Season Ended) 2025 Albumin Creatinine Ratio, Urine 11/07/2025 DTaP/Tdap/Td Vaccine (2 - Td or Tdap) 03/28/2028 03/28/2018 Procedures Procedure Name Priority Date/Time Associated Diagnosis Comments ALBUMIN CREATININE RATIO, URINE Routine 11/07/2024 2:15 PM STRAP STITCHER EGFR STAT 07/30/2021 10:40 AM CDT from Last 3 Months or Most Recently Relevant to Health Maintenance Results * Albumin Creatinine Ratio, Urine (11/07/2024 2:15 PM STRAP STITCHER) Albumin Ur <12.0 mg/L Comment: Interpretive Data No reference range established. Current interpretive data was last revised 2019. Testing performed by: [facility], [address] [place] [address], [place]., [address] Creatinine Ur 35.7 mg/dL [facility] Comment: Interpretive Data No reference range established. Current interpretive data was last revised 2019. Testing performed by: [address] [address] Albumin Creatinine Ratio, Ur See Comment 1 - 29 [facility] Comment: Unable to calculate Testing performed by: [place] [id number], [place]., [address] Urine 11/07/2024 2:15 PM STRAP STITCHER 11/07/2024 5:42 PM STRAP STITCHER us Edil Lorenzo MD LAB URINE ORDERABLES Fi nal Result [facility] [address] [facility] [place] [address] * eGFR (07/30/2021 10:40 AM CDT) eGFR 110 mL/min/1.7 3 m2 [facility] Comment: Interpretive Data Reference Interval Normal >/= [...] BLOOD ORDERABLES F inal Result [facility] [address] [facility] [place] [address] from Last 3 Months or Most Recently Relevant to Health Maintenance Insurance [employer] [facility] MEDICARE HMO [employer] [facility] MEDICARE HMO IDPA [facility] MEDICARE HMO [facility] MEDICARE ADVANTAGE Care Teams Voice Network Engineer Relationship Specialty Start Date End Date Justin Salazar DO [address] [facility] [address] [place] [address] PCP - General Internal Medicine 11/14/24
--- OUTSIDE RECORDS SUMMARY | 2025-02-19 11:18 | XMS_ITS | Encounter Summary ---
Author Organization [facility] Address [address] [place] [address] Phone Care Team Providers Care Clerical Office Name Role Phone Nathanael Cannon MD Unavailable [phone] Shubham Chamberlain MD Primary Care Provider [phone] Justin Salazar DO Primary Care Provider [phone] Reason for Referral * PT/OT/ST (Routine) - Closed Specialty Diagnoses / Procedures Referred By Drew borja Referred To Contact Occupational Therapy Diagnoses Unilateral primary osteoarthritis of first carpometacarpal joint, left hand Justin Salazar DO [address] [place] [address] Phone: tel: fax: [facility] [address] [facility], [address] [place] [address] Phone: tel: fax: Referral ID Status Reason Start Date Expiration Date Visits Re quested Visits Authorized [id number] Closed 07/01/2024 50 60 Scheduling Instructions Encounter Details Date Type Department Care Team (Late st Contact Info) Description 07/01/2024 Transcribe Orders [facility] [address] [place] [address] Justin Salazar DO [address] [place] [address] Unilateral primary osteoarthritis of first carpometacarpal joint, left hand (Primary Dx) Social History Tobacco Use Types Packs/Day Years Used Date Smoking Tobacco: Every Day Cigarettes 0.5 45.7 Started: 06/11/1979 Smokeless Tobacco: Never Alcohol Use Standard Drinks/Week Comments Yes 2 (1 standard drink = 0.6 oz pur e alcohol) occassional PHQ-2 Answer Date Recorded Total Score - Questions 1-9 0 07/2022 Sexually Active Control Partners Comments Yes [...] documented as of this encounter Care Teams Clerical Office Relationship Specialty Start Date End Date Shubham Chamberlain MD [address] [facility] [address] [place] [address] PCP - General Family Medicine 06/10/21 02/08/25 Justin Salazar DO [address] [facility] [address] [place] [address] PCP - General Internal Medicine 02/09/25 Nathanael Cannon MD Consulting Physician Orthopaedic Surgery 06/18/18 documented as of this encounter
--- OUTSIDE RECORDS SUMMARY | 2025-02-19 11:18 | XMS_ITS | Continuity of Care Document ---
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 [address] [place] [address], [address], [place]. tel:[phone] Office outpatient visit est [facility], [address] [address] [id number] [place], [place], [id number] , [place] tel: [phone] [facility] Dental musculoskeleta l pain (chief complaint) Arthropathy 4 No Information Office/outpa tient visit,est, [facility], [address] [address] [id number] [place], [place], [id number] , [place] tel: [phone] [facility] Dental arthalgias (chief complaint)med refill (chief complaint)dizz iness (chief complaint)lump (chief complaint) BMI Adult28.0-28.9 ArthropathyLum p Jul- 3 No Information Office/outpa tient visit,est, [facility], [address] [address] [id number] [place], [place], [id number] , [place] tel: [phone] [facility] Dental meds refill (chief complaint)arth algias (chief complaint) BMI Adult 29.0-29.9LOC PRIM OSTEOART-L/LEG Apr- 3 No Information Office/outpa tient visit,est, [facility], [address] [address] [id number] [place], [place], [id number] , [place] tel: [phone] [facility] Dental carpal tunnel symptoms (chief complaint) BMI Adult 29.0-29.9JOINT PAIN-FOREARM March- 3 No Information Office/outpa tient visit,[facility], [facility], [address] [address] [id number] [place], [place], [id number] , [place] tel: [phone] [facility] musculoskeleta l pain (chief complaint) BMI Adult28.0-28.9 ArthropathyLOC PRIM OSTEOART-L/LEG 3 No Information Office/outpa tient visit,[facility], [facility], [address] [id number] [place], [place], [id number] , [place] tel: [phone] [facility] No Information 2 Rafael Reddy. [address] [facility], [place], [address], [place]. tel:[phone] Office/outpa tient visit,[facility], [facility], [address] [facility] [id number] [place], [place], [id number] , [place] tel: [phone] [facility] musculoskeleta l pain (chief complaint)arth algias (chief complaint) BMI Adult28.0-28.9 JOINT PAIN-ANKLEArth ropathyHALLUX VALGUS 2 No Information [facility], [address] [facility] [id number] [place], [place], [id number] , [place] tel: [phone] [facility] No Information 2 No Information Office/outpa tient visit,[facility], [id number] [id number] [place], [address] , [place] tel: [phone] [facility] back pain (chief complaint) OverweightArth ropathyMYALGIA AND MYOSITIS NOSChest Pain, Unspecified 2 No Information Office/outpa tient visit,[facility], [facility], [address] [facility] [id number] [place], [place], [address] , [place] tel: [phone] [facility] cough (chief complaint) DepressionCoug hCough Jul- 1 No Information [facility], [address] [address] [id number] [place], [place], [address] , [place] tel:+ [phone] [facility] No Information 1 No Information Office/outpa tient visit,est, [facility], [address] [address] [id number] [place], [place], [id number] , [place] tel:+ [phone] [facility] No Information 1 No Information [facility], [address] [id number] [place], [place], [id number] , [place] tel:+ [phone] [facility] No Information 1 No Information Office/outpa tient visit,est, [facility], [id number] [id number] [place], [place], [address] , [place] tel: [phone] [facility] No Information 1 No Information Office/outpa tient visit,[facility], [facility], [address] [id number] [place], [place], [id number] , [place] tel: [phone] [facility] No Information 1 No Information Family History Family Member Type Diagnosis Age At Onset Mother Problem (finding) hypertension Mother Problem (finding) malignant neop lasm of breast in first degree relative Payers Payer name Insurance type Covered libertarian ID Authoriza tion(s) Medicare A [facility] [id number] Medicaid [place] [id number] Social History Type Description Quantity Date Captured Comments Alcohol Use Details Unknown Caffeine Use Details Unknown Tobacco Use Status Smoking Status No Information Sex Female Chief Complaint And Reason For Visit No Information Reason For Referral Reason For Referral No Information Plan Of Treatment Date Type Action Status Goal Influenza vaccin e. Due on due Goal FIT-DNA. Due on due Goal Depression scree dmitriy. Due on due Goal Lipid panel. Due on due Goal Mammogram. Due on due Goal Colonoscopy. Due on due Goal FOBT. Due on due Goal FIT. Due on due Goal Hepatitis C scre ening. Due on due Goal Sigmoidoscopy. Due on due Goal Td vaccine. Due on due Goal Pap/HPV testing. Due on due Goal Unhealthy drug u se screening. Due on due Goal CT-Colonography. Due on due Goal Tdap. Due on due Goal Zoster vaccine ( ). Due on due Goal HPV. Due on due Referral Ordered: referred to Dr. Olivas [facility] Evaluate and Treat within 3 Months (related to Arthropathy) ordered Referral Ordered: referred to Dr. Olivas [facility] Evaluate and Treat within 3 Months Appointment date/timeframe: 3 Months ordered Referral Ordered: Referral: Ortho Surg. Evaluate and treat. Appointment date/timeframe: 11/09/2012 ordered Future Order: Radiology Order Ex tremity Ultrasound (non-vascular)-Complete ([id number]), Ordered on: Ordered Future Order: Radiology Order Fo ot Complete - 3 Views ([id number]), Ordered on: Ordered Future Order: Radiology Order Ch est AP/Lat - 2 Views ([id number]), Ordered on: Ordered History Of Present Illness [...] Information Instructions Date Instruction Additional Infor mation Take medications as instructed R elated to Arthropathy Please make a follow up appointment with specialist Related to Arthropathy Dietary counseling Related to BM I Adult 28.0 - 28.9 Decrease caloric intake Related to BMI Adult 28.0 - 28.9 Dietary counseling Related to BM I Adult 29.0 - 29.9 Low fat diet Related to BMI A dult 29.0 - 29.9 Dietary counseling Related to BM I Adult 29.0 - 29.9 Decrease caloric intake Related to BMI Adult 29.0 - 29.9 Handout Given Related to BMI A dult 28.0 - 28.9 Handout Given Related to BMI A dult 28.0 - 28.9 Assessments Type Assessment Date assessment Financial insecurity Patient Care Teams Name Effective Dates (start - stop) Status Members No Information
== END 2025-02-19 10:04 | disposition home or self-care (01) ==
PROVIDERS: PCP Internal Medicine; Visit Provider Physician Assistant Surgical
DX: M18.12 Unilateral primary osteoarthritis of first carpometacarpal joint, left hand (principal)
CPT/HCPCS: 73130